=== PATIENT | female | born 1965 | race Caucasian/White ===

== ENCOUNTER 2018-08-15 15:57 | Inpatient (IN) ==
--- NOTE | 2018-08-15 16:22 | ED ---
HPI General Chief complaint: Extremity Injury, Lower Stated complaint: transfer/evac Time Seen by Provider: 08/15/18 16:11 History of Present Illness HPI narrative: This is a 53-year-old female who reports a history of hypertension, hyperlipidemia, GERD, osteopenia, baby aspirin use daily, presents as a transfer from an outside hospital for evaluation of a right knee injury. The patient reports that today she tripped and fell off of a log, landing on her feet. She felt immediate pain in her right knee. X-ray at outside hospital reveals severely comminuted proximal tibia fracture with significant lateral tibial plateau depression and involvement of the medial tibial plateau and proximal tibial metadiaphysis most consistent with a Schatzker type fracture. The patient was transferred here for further evaluation. She reports significant pain in her right knee, constant, worse with movement. She is holding it in a flexed position. She denies any pain in the neck, head, back, chest, abdomen. Symptoms are moderate. She has no other complaints. NPO since 7:30 AM. Related Data Home Medications Medication Instructions Recorded Confirmed alendronate [Fosamax] 70 mg PO QWEEK 08/15/18 08/15/18 amlodipine-benazepril [Lotrel] 1 cap PO DAILY 08/15/18 08/15/18 aspirin [Aspirin Low Dose] 81 mg PO DAILY 08/15/18 08/15/18 simvastatin 10 mg PO QPM 08/15/18 08/15/18 Allergies Allergy/AdvReac Type Severity Reaction Status Date / Time No Known Allergies Allergy Verified 08/15/18 16:12 Review of Systems ROS: all other systems reviewed are negative [facility] Medical History Medical History GERD (gastroesophageal reflux disease) (Acute) H/O: hysterectomy (Acute) Hyperlipidemia (Acute) Hypertension (Acute) Osteopenia (Acute) Surgical History Surgical History H/O shoulder surgery (Acute) Social History Social History Substance History: No History of Abuse Second Hand Smoke Exposure: No Smoking Status: Never smoker How Often Do You Have a Drink Containing Alcohol: Never Recent Travel in [facility] within the Last 8 Weeks: No Recent Out of Country Travel within the Last 8 Weeks: No Immunization History Tetanus Immunization: <5 Years Exam Narrative Exam Narrative: GENERAL: Well-developed well-nourished female no acute distress lying supine with right leg flexed at the knee. SKIN: Warm and dry. HEAD: Atraumatic. Normocephalic. EYES: Pupils equal and round. No scleral icterus. No injection or drainage. ENT: No nasal bleeding or discharge. Mucous membranes pink and moist. NECK: Trachea midline. No JVD. CARDIOVASCULAR: Regular rate and rhythm. No murmur appreciated. RESPIRATORY: No accessory muscle use. Clear to auscultation. Breath sounds equal bilaterally. GASTROINTESTINAL: Abdomen soft, non-tender, nondistended. Hepatic and splenic margins not palpable. MUSCULOSKELETAL: Obvious right knee effusion. There is generalized tenderness to palpation of the right knee. Range of motion examination deferred secondary to pain. 2+ dorsalis pedis pulse. NEUROLOGICAL: Awake and alert. No obvious cranial nerve deficits. Motor grossly within normal limits. Normal speech. Course Initial Documented Vital Signs Temperature 98.7 F 08/15/18 16:04 Pulse Rate 84 08/15/18 16:04 Respiratory Rate 18 08/15/18 16:04 Blood Pressure 133/92 H 08/15/18 16:04 Pulse Oximetry 99 08/15/18 16:04 Last Documented Vital Signs Temperature 98 F 08/20/18 08:00 Pulse Rate 90 08/20/18 08:00 Respiratory Rate 20 08/20/18 08:00 Blood Pressure 106/69 08/20/18 08:00 Pulse Oximetry 92 L 08/20/18 08:00 Medical Decision Making MOIZ Attestation MOIZ supervised visit: Yes Attestation: I, Dr. Miller, have reviewed the advance practice practitioner's documentation and am in agreement, met with the patient face to face, made the diagnosis, and the medical decision making was done by me. *My assessment and Findings: Fracture right tibia Patient was seen at [facility] in [place] with diagnosis fractured right tibia. Patient was transferred to [facility] after ED physician in [place] spoke to trauma surgeon at [place], Dr. Gentile. Patient was transferred to [place] for further evaluation and management of her tibial plateau fracture. I spoke with Dr. Mckay, orthopedist cyber defense incident responder. Conscious sedation procedure will be done for knee immobilization and CT of the knee. MDM Narrative Medical decision making narrative: Transfer was accepted by trauma surgeon Dr. Gentile who recommends orthopedic evaluation and hospitalist admission as it is isolated orthopedic injury. Dr. Miller was able to discuss with the on-call orthopedic surgeon who will see the patient in consultation. The patient was admitted to Dr. Burt, hospitalist. Conscious sedation was performed in order to extend the leg and placed in a knee brace/ice cuff. CT imaging will be obtained. Medical Screen Exam Complete: Yes Emergency Medical Condition: Yes Differential Diagnosis Differential Diagnosis: Tibial plateau fracture, dislocation, ligamentous disruption. Lab Data Result diagrams: 08/20/18 03:56 08/16/18 07:04 Lab Results 08/15/18 08/15/18 08/15/18 Range/Units 16:25 16:25 16:25 WBC 14.0 H (4.0-11.0) th/mm3 RBC 4.03 (4.00-5.30) mil/mm3 Hgb 12.0 (11.6-15.3) gm/dL Hct 35.5 (35.0-46.0) % MCV 88.2 (80.0-100.0) fL MCH 29.7 (27.0-34.0) pg MCHC 33.7 (32.0-36.0) % RDW 13.9 (11.6-17.2) % Plt Count 268 (150-450) th/mm3 MPV 8.7 (7.0-11.0) fL Neut % (Auto) 82.3 H (16.0-70.0) % Lymph % (Auto) 10.3 (9.0-44.0) % [place] % (Auto) 6.8 (0.0-8.0) % Eos % (Auto) 0.0 (0.0-4.0) % Baso % (Auto) 0.6 (0.0-2.0) % Neut # (Auto) 11.5 H (1.8-7.7) th/mm3 Lymph # (Auto) 1.4 (1.0-4.8) th/mm3 [place] # (Auto) 1.0 H (0.0-0.9) th/mm3 Eos # (Auto) 0.0 (0.0-0.4) th/mm3 Baso # (Auto) 0.1 (0.0-0.2) th/mm3 WBC Differential . Differential Comment Auto diff final PT 10.3 (9.8-11.6) sec INR 1.0 Ratio APTT 20.3 L (23.4-31.7) sec Sodium 139 (136-145) meq/L Potassium 4.6 (3.5-5.1) meq/L Chloride 107 (98-107) meq/L Carbon Dioxide 21.6 (21.0-32.0) meq/L Anion Gap 10 (5-15) meq/L BUN 19 H (7-18) mg/dL Creatinine 1.14 H (0.50-1.00) mg/dL Estimated GFR 49 L (>89) mL/min Random Glucose 118 H (74-106) mg/dL Calcium 8.5 (8.5-10.1) mg/dL Calcium Adj for Albumin (8.5-10.1) mg/dL Albumin (3.4-5.0) g/dL Blood Type Blood Type Recheck Antibody Screen 08/15/18 08/16/18 08/16/18 Range/Units 16:25 07:04 07:04 WBC 8.8 (4.0-11.0) th/mm3 RBC 3.38 L (4.00-5.30) mil/mm3 Hgb 10.4 L (11.6-15.3) gm/dL Hct 30.4 L (35.0-46.0) % MCV 90.1 (80.0-100.0) fL MCH 30.8 (27.0-34.0) pg MCHC 34.2 (32.0-36.0) % RDW 13.4 (11.6-17.2) % Plt Count 197 (150-450) th/mm3 MPV 8.4 (7.0-11.0) fL Neut % (Auto) 74.3 H (16.0-70.0) % Lymph % (Auto) 16.8 (9.0-44.0) % [place] % (Auto) 7.8 (0.0-8.0) % Eos % (Auto) 0.5 (0.0-4.0) % Baso % (Auto) 0.6 (0.0-2.0) % Neut # (Auto) 6.5 (1.8-7.7) th/mm3 Lymph # (Auto) 1.5 (1.0-4.8) th/mm3 [place] # (Auto) 0.7 (0.0-0.9) th/mm3 Eos # (Auto) 0.0 (0.0-0.4) th/mm3 Baso # (Auto) 0.1 (0.0-0.2) th/mm3 WBC Differential . Differential Comment Auto diff final PT (9.8-11.6) sec INR Ratio APTT (23.4-31.7) sec Sodium 139 (136-145) meq/L Potassium 4.2 (3.5-5.1) meq/L Chloride 107 (98-107) meq/L Carbon Dioxide 23.4 (21.0-32.0) meq/L Anion Gap 9 (5-15) meq/L BUN 17 (7-18) mg/dL Creatinine 0.88 (0.50-1.00) mg/dL Estimated GFR 67 L (>89) mL/min Random Glucose 113 H (74-106) mg/dL Calcium 7.4 L* D (8.5-10.1) mg/dL Calcium Adj for Albumin 8.1 L (8.5-10.1) mg/dL Albumin 3.1 L (3.4-5.0) g/dL Blood Type A Positive Blood Type Recheck Required Antibody Screen Negative 08/17/18 08/19/18 08/20/18 Range/Units 05:38 06:22 03:56 WBC 9.9 (4.0-11.0) th/mm3 RBC 3.07 L (4.00-5.30) mil/mm3 Hgb 9.4 L 8.7 L 8.7 L (11.6-15.3) gm/dL Hct 27.1 L 25.7 L 25.2 L (35.0-46.0) % MCV 88.1 (80.0-100.0) fL MCH 30.6 (27.0-34.0) pg MCHC 34.8 (32.0-36.0) % RDW 13.2 (11.6-17.2) % Plt Count 193 (150-450) th/mm3 MPV 8.1 (7.0-11.0) fL Neut % (Auto) (16.0-70.0) % Lymph % (Auto) (9.0-44.0) % [place] % (Auto) (0.0-8.0) % Eos % (Auto) (0.0-4.0) % Baso % (Auto) (0.0-2.0) % Neut # (Auto) (1.8-7.7) th/mm3 Lymph # (Auto) (1.0-4.8) th/mm3 [place] # (Auto) (0.0-0.9) th/mm3 Eos # (Auto) (0.0-0.4) th/mm3 Baso # (Auto) (0.0-0.2) th/mm3 WBC Differential Differential Comment PT (9.8-11.6) sec INR Ratio APTT (23.4-31.7) sec Sodium (136-145) meq/L Potassium (3.5-5.1) meq/L Chloride (98-107) meq/L Carbon Dioxide (21.0-32.0) meq/L Anion Gap (5-15) meq/L BUN (7-18) mg/dL Creatinine (0.50-1.00) mg/dL Estimated GFR (>89) mL/min Random Glucose (74-106) mg/dL Calcium (8.5-10.1) mg/dL Calcium Adj for Albumin (8.5-10.1) mg/dL Albumin (3.4-5.0) g/dL Blood Type Blood Type Recheck Antibody Screen Imaging Data Radiologist's impression: Knee CT 08/15/18 17:03 CONCLUSION: 1. Markedly comminuted fracture involving the proximal tibia with involvement of both the medial and lateral articulating surfaces. There is a fragment of the medial tibial plateau remaining anteriorly measuring up to 2 cm across but otherwise unremarkable depressed fragments. Laterally there is very little normal-appearing cortical fragments along the original plane of the lateral tibial plateau. 2. The medial tibial spine is grossly intact and I believe the ACL is probably still intact. 3. The bone at the PCL insertion is markedly comminuted fracture Knee X-Ray 08/16/18 00:00 CONCLUSION: External fixation of the exceedingly comminuted fracture of the proximal tibia. Medial tibial plateau appears now in near-anatomic alignment. Some mild residual depression of the lateral tibial plateau. Discharge Plan Discharge Disposition Patient Disposition: ED Admit(ED Internal Use Only) Discharge Condition Condition: Stable Discharge Order Discharge Orders: ED Use Only Admit Order (Routine); Ordered 08/15/18 Ordered By: Brando Cruz Discharge Details Diagnosis: Closed fracture of right tibial plateau Physicians Team ED Provider: Lon Miller ED Midlevel Provider: Brando Cruz Primary Care Provider: UNKNOWN, Attending Provider: Roseanne House Other Providers: Mohan Mckay ; Aj Boudreaux Status ED Status: Left Department Discharge Information Discharge Date/Time: 08/15/18 18:56
[2018-08-15] MEDS: Morphine Inj 4 MG/ML Vial IV.PUSH ONE ×2 (16:44→16:48)
[2018-08-15] MEDS ORDERED: HYDROmorphone PF Inj 2 MG/ML Vial IV.PUSH ONE (16:46)
[2018-08-15 16:48] LABS: Baso # (Auto) 0.1 th/mm3 (0.0-0.2); Baso % (Auto) 0.6 % (0.0-2.0); Hematocrit 35.5 % (35.0-46.0); Lymph # (Auto) 1.4 th/mm3 (1.0-4.8); Lymph % (Auto) 10.3 % (9.0-44.0); Mean Corpuscular HGB Conc 33.7 % (32.0-36.0); Mean Corpuscular Hemoglobin 29.7 pg (27.0-34.0); Mean Corpuscular Volume 88.2 fL (80.0-100.0); Mean Platelet Volume 8.7 fL (7.0-11.0); Mono % (Auto) 6.8 % (0.0-8.0); Neut # (Auto) 11.5 th/mm3 (1.8-7.7); Neut % (Auto) 82.3 % (16.0-70.0); Platelet Count 268 th/mm3 (150-450); Red Blood Count 4.03 mil/mm3 (4.00-5.30); Red Cell Distribution Width 13.9 % (11.6-17.2)
[2018-08-15] MEDS ORDERED: Midazolam Inj 5 MG/ML 1 ML Vial IV.PUSH ONE (16:48)
[2018-08-15] MEDS: Sod Chloride 0.9% Inj 1,000 ML IV.CONT SCH ×2 (16:51→18:06)
[2018-08-15 16:55] LABS: Activated Partial Thrombo Time 20.3 sec (23.4-31.7); Prothrombin Time 10.3 sec (9.8-11.6)
[2018-08-15 17:09] LABS: Calcium 8.5 mg/dL (8.5-10.1); Carbon Dioxide 21.6 meq/L (21.0-32.0); Potassium 4.6 meq/L (3.5-5.1)
[2018-08-15] MEDS ORDERED: Acetaminophen 325 MG Tablet PO PRN (17:18)
[2018-08-15] MEDS ORDERED: Bisacodyl 10 MG Supp RECTAL PRN (17:18)
--- NOTE | 2018-08-15 17:22 | P.HPIM ---
History of Present Illness Service: This is a 53-year-old female with history of hypertension, hyperlipidemia, GERD, osteopenia, baby aspirin use daily, presents as a transfer from an outside hospital for evaluation of a right knee injury. The patient tripped today and fell off of a log, landing on her feet. She felt immediate pain in her right knee. X-ray at outside hospital reveals severely comminuted proximal tibia fracture with significant lateral tibial plateau depression and involvement of the medial tibial plateau and proximal tibial metadiaphysis most consistent with a Schatzker type fracture. The patient was transferred here for further evaluation. She reports significant pain in her right knee, constant, worse with movement. She is holding it in a flexed position. She denies any pain in the neck, head, back, chest, abdomen. Symptoms are moderate. She has no other complaints. NPO since 7:30 AM. Patient is in severe pain. Patient received IV pain meds morphine, dilaudid, still with severe pain. Dr Woody rodrigez recommends CT scan of the knee and splint done in the ED. Patient received versed prior to CT knee in the ED. The patient was seen in the ED just prior to CT scan and she is in pain, falling asleep easily due to pain meds however able to follow some commands and responding to some questions. Julien placed in the ED with clear urine. Primary Care Physician: UNKNOWN Review of Systems Review of Systems: all other systems reviewed are negative [facility] Medical History Medical History GERD (gastroesophageal reflux disease) (Acute) H/O: hysterectomy (Acute) Hyperlipidemia (Acute) Hypertension (Acute) Osteopenia (Acute) Surgical History Surgical History H/O shoulder surgery (Acute) Social History Social History Substance History: No History of Abuse Second Hand Smoke Exposure: No Smoking Status: Never smoker How Often Do You Have a Drink Containing Alcohol: 4 or more times a week Recent Travel in [facility] within the Last 8 Weeks: No Recent Out of Country Travel within the Last 8 Weeks: No Immunization History Tetanus Immunization: <5 Years Medications and Allergies Allergies Allergy/AdvReac Type Severity Reaction Status Date / Time No Known Allergies Allergy Verified 08/15/18 16:12 Home Medications Medication Instructions Recorded Confirmed Type alendronate [Fosamax] 70 mg PO QWEEK 08/15/18 08/15/18 History amlodipine-benazepril [Lotrel] 1 cap PO DAILY 08/15/18 08/15/18 History aspirin [Aspirin Low Dose] 81 mg PO DAILY 08/15/18 08/15/18 History simvastatin 10 mg PO QPM 08/15/18 08/15/18 History Active Medications: Active Medications Acetaminophen (Tylenol) 650 mg PO Q4H PRN PRN Reason: Temp > 100.4 Al Hydroxide/Mg Hydroxide (Milk Of Magnesia Liq) 30 ml PO Q12H PRN PRN Reason: Mild Constipation Bisacodyl (Dulcolax Supp) 10 mg RECTAL DAILY PRN PRN Reason: SEVERE CONSITIPATION Sodium Chloride (Ns Inj) 1,000 mls @ 125 mls/hr IV.CONT .Q8H [facility] Last Admin: 08/15/18 16:51 Dose: 125 mls/hr Sodium Chloride (Ns Inj) 1,000 mls @ 100 mls/hr IV.CONT .Q10H MARANDA Lactulose (Lactulose Liq) 30 ml PO DAILY PRN PRN Reason: SEVERE CONSITIPATION Ondansetron HCl (Zofran Inj) 4 mg IV.PUSH Q6H PRN PRN Reason: NAUSEA OR VOMITING Senna/Docusate Sodium (Latoya-Colace) 1 tab PO BID MARANDA Sennosides (Senokot) 17.2 mg PO Q12H PRN PRN Reason: Moderate Constipation Sodium Chloride (Ns Flush) 2 ml IV.FLUSH BID MARANDA Sodium Chloride (Ns Flush) 2 ml IV.FLUSH PRN PRN PRN Reason: FLUSH AFTER USING IV ACCESS Physical Exam Vital signs: Vital Signs 08/15/18 16:04 Temperature 98.7 F Pulse Rate 84 Respiratory Rate 18 Blood Pressure 133/92 H Pulse Oximetry 99 Intake & Output 08/14/18 08/15/18 08/15/18 18:59 06:59 18:59 Weight 108.862 kg Narrative: GENERAL: 53 yo female, appears in pain , sleepy but arrousable due to pain meds and sedation. SKIN: Warm and dry. HEAD: Atraumatic. Normocephalic. EYES: Pupils equal and round. No scleral icterus. No injection or drainage. ENT: No nasal bleeding or discharge. Mucous membranes pink and moist. NECK: Trachea midline. No JVD. CARDIOVASCULAR: Regular rate and rhythm. RESPIRATORY: No accessory muscle use. Clear to auscultation. Breath sounds equal bilaterally. GASTROINTESTINAL: Abdomen soft, non-tender, nondistended. Hepatic and splenic margins not palpable. MUSCULOSKELETAL: Extremities without clubbing, cyanosis, or edema. Right knee immobilized in the ED. Neurovascular intact. GENITOURINARY: Julien in place, clear urine. NEUROLOGICAL: Awake and alert, falling asleep easily. No obvious cranial nerve deficits. Moving all extremities except right leg due tp pain. Normal speech. Results Labs CBC & Chem 7: 08/15/18 16:25 08/15/18 16:25 Caprini VTE Risk Assessment Caprin VTE Risk Assessment: Moderate/High Risk (score >= 2) Caprini Risk Assessment Model: Point Value = 1 Point Value = 2 Point Value = 3 Point Value = 5 Age 41-60 Minor surgery BMI > 25 kg/m2 Swollen legs Varicose veins or History of unexplained or recurrent spontaneous Oral contraceptives or hormone replacement Sepsis (< 1 month) Serious lung disease, including pneumonia (< 1 month) Abnormal pulmonary function Acute myocardial infarction Congestive heart failure (< 1 month) History of inflammatory bowel disease Medical patient at bed rest Age 61-74 Arthroscopic surgery Major open surgery (> 45 min) Laparoscopic surgery (> 45 min) Malignancy Confined to bed (> 72 hours) Immobilizing plaster cast Central venous access Age >= 75 History of VTE Family history of VTE Factor V Leiden Prothrombin [id number] Lupus anticoagulant Anticardiolipin antibodies Elevated serum homocysteine Heparin-induced thrombocytopenia Other congenital or acquired thrombophilia Stroke (< 1 month) Elective arthroplasty Hip, pelvis, or leg fracture Acute spinal cord injury (< 1 month) Prophylaxis Regimen: Total Risk Factor Score Risk Level Prophylaxis Regimen 0-1 Low Early ambulation 2 Moderate Order ONE of the following: *Sequential Compression Device (SCD) *Heparin 5000 units SQ BID 3-4 Higher Order ONE of the following medications: *Heparin 5000 units SQ TID *Enoxaparin/Lovenox 40 mg SQ daily (WT < 150 kg, CrCl > 30 mL/min) *Enoxaparin/Lovenox 30 mg SQ daily (WT < 150 kg, CrCl > 10-29 mL/min) *Enoxaparin/Lovenox 30 mg SQ BID (WT < 150 kg, CrCl > 30 mL/min) AND/OR *Sequential Compression Device (SCD) 5 or more Highest Order ONE of the following medications: *Heparin 5000 units SQ TID (Preferred with Epidurals) *Enoxaparin/Lovenox 40 mg SQ daily (WT < 150 kg, CrCl > 30 mL/min) *Enoxaparin/Lovenox 30 mg SQ daily (WT < 150 kg, CrCl > 10-29 mL/min) *Enoxaparin/Lovenox 30 mg SQ BID (WT < 150 kg, CrCl > 30 mL/min) AND *Sequential Compression Device (SCD) Assessment and Plan Plan 53-year-old female status post mechanical fall Status post mechanical fall Close fracture of right tibial plateau Intractable right knee pain History of hypertension History of hyperlipidemia History of osteoporosis On chronic use aspirin Orthopedic surgery consulted Dr. Mckay X-ray outside the hospital shows right tibial fracture Plan for CT right knee Pain medications per pain scale The patient was splinted in the emergency room Healthy heart diet N.p.o. after midnight Antiemetics as needed Bowel regimen as needed Hold aspirin Restart home medications as indicated DVT prophylaxis per surgeon Discussed Condition With: Patient, nurse, ED physician Dr. Miller
--- NOTE | 2018-08-15 18:01 | CT ---
EXAM DATE: 08/15/2018 5:47 PM EST AGE/SEX: 53 years / Female INDICATIONS: Trauma, fall. Right knee pain. CLINICAL DATA: This is the patient's initial encounter. Patient reports that signs and symptoms have been present for 1 day and indicates a pain score of 10/10. MEDICAL/SURGICAL HISTORY: Gastroesophageal reflux disease. Hypertension. Osteopenia. Hysterectomy . RADIATION DOSE: 27.70 CTDI (mGy) COMPARISON: No prior exams available for comparison. TECHNIQUE: Multiple contiguous axial images were acquired using a multirow detector CT scanner witho ut contrast. Multiplanar reconstruction was performed in the sagittal and coronal planes. Using aut omated exposure control and adjustment of the mA and/or kV according to patient size, radiation dose was kept as low as reasonably achievable to obtain optimal diagnostic quality images. DICOM format i mage data is available electronically for review and comparison. FINDINGS: Bones: There is a markedly comminuted fracture involving the proximal tibia. There are innumerable f ragments with extensive disruption of the articulating surface. The distal femur is intact. The fibul a is intact. The patella is unremarkable. Joints: No significant arthropathy or bony hypertrophy is seen. Soft Tissues: Large lipohemarthrosis of the joint with an effusion. Other: No foreign bodies seen. CONCLUSION: 1. Markedly comminuted fracture involving the proximal tibia with involvement of both the medial and lateral articulating surfaces. There is a fragment of the medial tibial plateau remaining anteriorly measuring up to 2 cm across but otherwise unremarkable depressed fragments. Laterally there is very little normal-appearing cortical fragments along the original plane of the lateral tibial plateau. 2. The medial tibial spine is grossly intact and I believe the ACL is probably still intact. 3. The bone at the PCL insertion is markedly comminuted fracture Electronically signed by: Quentin Mariee MD Board Certified Radiologist 08/15/2018 6:00 PM EST
[2018-08-15] MEDS: Senna/Docusate Sodium 8.6/50 MG Tablet PO SCH (20:17)
[2018-08-15] MEDS: HYDROmorphone PF Inj 1 MG/ML Ampul IV.PUSH PRN (20:55)
[2018-08-16] MEDS: HYDROmorphone PF Inj 1 MG/ML Ampul IV.PUSH PRN ×5 (00:31→20:10)
[2018-08-16] MEDS ORDERED: Chlorhexidine Gluconate 2% 1 Pack (2 Cloths) TOPICAL ONE (02:20)
[2018-08-16] MEDS ORDERED: Metoprolol Tartrate 25 MG Tablet PO ONE (02:20)
[2018-08-16] MEDS: Sod Chloride 0.9% Inj 1,000 ML IV.CONT SCH ×5 (02:50→20:50)
[2018-08-16] MEDS ORDERED: Sodium Chlor 0.9% Inj 500 ML IV.SIG SCH (03:00)
[2018-08-16 08:30] LABS: Baso # (Auto) 0.1 th/mm3 (0.0-0.2); Baso % (Auto) 0.6 % (0.0-2.0); Eos % (Auto) 0.5 % (0.0-4.0); Hematocrit 30.4 % (35.0-46.0); Hemoglobin 10.4 gm/dL (11.6-15.3); Lymph # (Auto) 1.5 th/mm3 (1.0-4.8); Lymph % (Auto) 16.8 % (9.0-44.0); Mean Corpuscular HGB Conc 34.2 % (32.0-36.0); Mean Corpuscular Hemoglobin 30.8 pg (27.0-34.0); Mean Corpuscular Volume 90.1 fL (80.0-100.0); Mean Platelet Volume 8.4 fL (7.0-11.0); Mono # (Auto) 0.7 th/mm3 (0.0-0.9); Mono % (Auto) 7.8 % (0.0-8.0); Neut # (Auto) 6.5 th/mm3 (1.8-7.7); Neut % (Auto) 74.3 % (16.0-70.0); Platelet Count 197 th/mm3 (150-450); Red Blood Count 3.38 mil/mm3 (4.00-5.30); Red Cell Distribution Width 13.4 % (11.6-17.2); White Blood Count 8.8 th/mm3 (4.0-11.0)
[2018-08-16 08:50] LABS: Calcium 7.4 mg/dL (8.5-10.1); Carbon Dioxide 23.4 meq/L (21.0-32.0); Potassium 4.2 meq/L (3.5-5.1)
[2018-08-16 08:57] LABS: Albumin 3.1 g/dL (3.4-5.0); Calcium-Albumin Corrected 8.1 mg/dL (8.5-10.1)
[2018-08-16] MEDS: amLODIPine 10 MG Tablet PO SCH (09:00)
[2018-08-16] MEDS: Senna/Docusate Sodium 8.6/50 MG Tablet PO SCH ×2 (09:00→20:10)
[2018-08-16] MEDS: Lisinopril 20 MG Tablet PO SCH (09:01)
[2018-08-16] MEDS ORDERED: Glycopyrrolate Inj 1 MG/5 ML Syringe IV.PUSH ONE (09:24)
[2018-08-16] MEDS ORDERED: Neostigmine Inj 5 MG/5 ML Syringe IV.PUSH ONE (09:24)
[2018-08-16] MEDS ORDERED: Lidocaine PF 1% Inj 5 ML Syringe OTHER ONE (09:24)
[2018-08-16] MEDS ORDERED: ceFAZolin 2 GM Premix Inj 2 GM/50 ML PIGGYBACK IV.SIG ONE (10:29)
[2018-08-16] MEDS ORDERED: Post-op Orders (for Pharmacy) OTHER STA (10:38)
--- NOTE | 2018-08-16 10:42 | XR ---
EXAM DATE: 08/16/2018 10:36 AM EST AGE/SEX: 53 years / Female INDICATIONS: External fixation. CLINICAL DATA: This is the patient's initial encounter. Patient reports that signs and symptoms have been present for 1 day and indicates a pain score of Nonresponsive. MEDICAL/SURGICAL HISTORY: Non-responsive. Non-responsive. COMPARISON: [facility], CT KNEE RIGHT W/O CONTRAST, 08/15/2018. . FINDINGS: External fixation is partially visible. The extremely comminuted fracture of the proximal tibia is ag ain noted. The medial plateau portion appears now in near-anatomic alignment but there is some persis tent depression of the lateral tibial plateau. CONCLUSION: External fixation of the exceedingly comminuted fracture of the proximal tibia. Medial tibial plateau appears now in near-anatomic alignment. Some mild residual depression of the lateral tibial plateau. Electronically signed by: Andrzej Cochran MD Board Certified Radiologist 08/16/2018 10:40 AM EST
[2018-08-16] MEDS ORDERED: fentaNYL Citrate Inj 100 MCG/2 ML Ampul ONE (10:43)
[2018-08-16] MEDS ORDERED: *morphine SULFATE 4 MG/ML PERIprocedure ONLY ONE ×2 (10:50→10:58)
--- NOTE | 2018-08-16 12:27 | MB ---
cc: Mohan Mckay MD DATE: 08/16/2018 REASON FOR CONSULTATION: Right tibial plateau fracture. HISTORY OF PRESENT ILLNESS: The patient is a 53-year-old female with hypertension, hyperlipidemia, gastric reflux, osteopenia who was transferred from another hospital to [facility] with severe right knee injury. She states that she was standing on a 5-foot log and fell to the ground, landing on her right leg. She developed immediate onset of severe pain and an inability to stand or ambulate as related to the fracture. She presented to [facility] and was diagnosed with a highly comminuted, displaced right tibial plateau fracture. The patient's pain is severe, constant, worsened with any movement. No numbness or tingling. No referred symptoms currently. PAST MEDICAL HISTORY: Positive for gastric reflux, hysterectomy, hyperlipidemia, hypertension, osteopenia. REVIEW OF SYSTEMS: Negative for 10 systems as noted in the HPI. SOCIAL HISTORY: Nonsmoker, occasionally drinks alcohol. ALLERGIES: NO KNOWN DRUG ALLERGIES. MEDICATIONS: Include: 1. Fosamax. 2. Amlodipine. 3. Aspirin. 4. Simvastatin. PHYSICAL EXAM: VITAL SIGNS: Temperature 98.7, pulse 84, respirations 18, blood pressure 133/92. GENERAL: The patient is awake, alert, lying in bed, in no acute distress. HEENT: Normocephalic, atraumatic. Pupils round, extraocular muscles intact. NECK: Supple. LUNGS: Clear. HEART: Regular rate and rhythm. ABDOMEN: Soft, nontender. SKIN: Warm, dry, and intact. NEUROLOGIC: Awake, alert. Mood and affect are appropriate. EXTREMITIES: Her right lower extremity does show tenderness to palpation of the tibia. She has swelling, but her compartments are soft. Reflexes are equal in her toes distally. DIAGNOSTIC DATA: White blood cell count is 14, hemoglobin is 12, hematocrit is 35, platelets are 268, BUN is 19, creatinine 1.14, glucose 118. X-rays and CT scan also reviewed that show a highly comminuted displaced right tibial plateau fracture. IMPRESSION: A 53-year-old female, status post fall from a height with a right displaced tibial plateau fracture. PLAN: I discussed the diagnosis and treatment options. At this point, I recommend surgery. Surgery will consist of reduction of the fracture and application of an external fixation device. Risks of surgery were discussed, which include, but are not limited to, anesthesia, bleeding, infection, damage to nerves and blood vessels, blood clots, embolisms. She understands the surgical plan will be a staged plan for surgery today and also she will likely require additional surgery in the future with open reduction internal fixation. The patient has asked appropriate questions which have been answered. She is in favor of proceeding with surgery. Written consent has been obtained and surgical site has been marked. Mohan Mckay MD [id number] , 09:42 AM , 09:47 AM
--- NOTE | 2018-08-16 13:27 | MP ---
cc: Mohan Mckay MD DATE OF OPERATION: 08/16/2018 PREOPERATIVE DIAGNOSIS: Right tibial plateau fracture. POSTOPERATIVE DIAGNOSIS: Right tibial plateau fracture. PROCEDURE: Closed reduction under anesthesia, right tibial plateau fracture, application of uniplanar external fixation, right tibial plateau fracture. SURGEON: Mohan Mckay MD. MANAGER REIMBURSEMENT: FLORENCIO Salgado. ANESTHESIA: General. ESTIMATED BLOOD LOSS: 60 mL. TOURNIQUET: Zero. COMPLICATIONS: None. IMPLANTS USED: ITS. JUSTIFICATION: This patient is a 53-year-old female who fell approximately 5 feet onto the right leg, sustaining a highly comminuted, displaced, impacted right tibial plateau fracture. She was admitted to [facility] from the emergency room and orthopedic surgery was consulted. The patient was counseled as to risks, benefits, and alternatives of the above-named proposed surgical procedure. She did wish to proceed with surgery. DESCRIPTION OF PROCEDURE IN DETAIL: Written consent was obtained. The patient was identified by name, taken to the operating room, and placed supine. General anesthesia was administered to the patient as well as 2 grams of IV Ancef. The right lower extremity prepped and draped using isopropyl alcohol, Hibiclens solution, and ChloraPrep solution after a timeout was performed. Using assistance of fluoroscopic imaging, two 5 mm half pins were placed within the femoral shaft and also two 5 mm half pins were placed within the tibia shaft. Chris-to-chris and pin-to-chris clamps were then connected using the assistance of fluoroscopic imaging. A large longitudinal traction was applied and a closed reduction was performed of the fracture with the manipulation under anesthesia. Subsequently, the chris-to-chris and pin-to-chris clamps were tightened to allow maintenance of reduction of the fracture. At this point, sterile dressings were applied. The patient tolerated the procedure well with no intraoperative complications noted. She will require a planned staged surgical open reduction internal fixation of her fracture once the swelling and soft tissue allow for open reduction internal fixation. Mohan Mckay MD JWBianka/[email or web address]/kd , 10:17 AM , 10:23 AM
--- NOTE | 2018-08-16 14:00 | ECG ---
Date Performed: 08/16/2018 Time Performed: 08:55:43 PTAGE: 53 years EKG: Sinus rhythm NORMAL ECG NO PREVIOUS TRACING DOCTOR: Quentin Morejon Interpretating Date/Time 08/16/2018 14:00:07
--- NOTE | 2018-08-16 15:57 | P.PNIM ---
Subjective Interval history: Follow-up for right tibial plateau fracture, status post closed reduction with external fixation application 08/16: Patient seen and examined, just got back from surgery. Sleepy but arouses to voice. Complains of pain, has been having leg spasms. No chest pain, no shortness of breath. No nausea, no vomiting. Family at bedside, they have many questions about the next surgery and how long she will be in hospital. Questions answered, directed them to speak to surgical team during morning rounds as well. Physical Exam Vital signs: Vital Signs 08/15/18 16:04 08/15/18 17:34 08/15/18 18:03 Temperature 98.7 F Pulse Rate 84 92 H Respiratory Rate 18 18 Blood Pressure 133/92 H 115/70 Pulse Oximetry 99 94 L 96 08/15/18 19:29 08/15/18 23:12 08/16/18 04:26 Temperature 97.8 F 98.1 F 97.5 F L Pulse Rate 85 77 94 H Respiratory Rate 18 18 20 Blood Pressure 117/65 109/62 117/71 Pulse Oximetry 97 96 94 L 08/16/18 08:00 08/16/18 08:51 08/16/18 10:35 Temperature 98.5 F 98.8 F Pulse Rate 88 93 H Respiratory Rate 18 12 Blood Pressure 123/73 119/69 Pulse Oximetry 98 95 08/16/18 10:45 08/16/18 11:00 08/16/18 11:15 Temperature 98 F Pulse Rate 77 69 64 Respiratory Rate 15 14 13 Blood Pressure 117/69 107/57 L 101/59 L Pulse Oximetry 92 L 95 95 08/16/18 12:00 Temperature 98.1 F Pulse Rate 82 Respiratory Rate 20 Blood Pressure 115/55 L Pulse Oximetry 95 Intake & Output 08/15/18 08/16/18 08/16/18 18:59 06:59 18:59 Intake Total 100 / 100 1360 / 1360 2000 / 1999 Output Total 550 / 550 135 / 135 Balance 100 / 100 810 / 810 1865 / 1865 Weight 108.862 kg 114.8 kg Intake: IV 100 / 100 1000 / 1000 1000 / 1000 NS Inj 1,000 ML @ 100 mls/hr IV 100 / 100 1000 / 1000 1000 / 1000 .CONT .Q10H [facility] Rx#:[id number] Oral 360 / 360 Anesthesia Amount 1000 / 1000 Output: Estimated Blood Loss Urine Amount (Catheter) 550 / 550 125 / 125 Indwelling Urethral Catheter 550 / 550 125 / 125 Other: Date of Last Bowel Movement 08/15/18 08/15/18 # Bowel Movements 0 Narrative: GENERAL: 53 yo female, moderately obese, sleeping but arouses to voice SKIN: Warm and dry. HEAD: Atraumatic. Normocephalic. EYES: Pupils equal and round. No scleral icterus. No injection or drainage. ENT: No nasal bleeding or discharge. Mucous membranes pink and moist. NECK: Trachea midline. No JVD. CARDIOVASCULAR: Regular rate and rhythm. RESPIRATORY: No accessory muscle use. Clear to auscultation. Breath sounds equal bilaterally. GASTROINTESTINAL: Abdomen soft, non-tender, nondistended. Hepatic and splenic margins not palpable. MUSCULOSKELETAL: Right knee with external fixator in place, swelling noted as expected. Moderate drainage, bloody. Right pedal pulse 2+, intact sensation. No other joint abnormality. GENITOURINARY: Julien in place, clear urine. NEUROLOGICAL: Awake and alert, falling asleep easily. No obvious cranial nerve deficits. Moving all extremities except right leg due tp pain. Normal speech. Urinary Catheter Management Indwelling Urethral Catheter: Cath placed during this visit: yes Reason for continuing: Other continuation reason Insertion date: 08/15/18 Insertion time: 17:28 Results Labs CBC & Chem 7: 08/16/18 07:04 08/16/18 07:04 Imaging Imaging: Impressions Knee CT 08/15/18 17:03 CONCLUSION: 1. Markedly comminuted fracture involving the proximal tibia with involvement of both the medial and lateral articulating surfaces. There is a fragment of the medial tibial plateau remaining anteriorly measuring up to 2 cm across but otherwise unremarkable depressed fragments. Laterally there is very little normal-appearing cortical fragments along the original plane of the lateral tibial plateau. 2. The medial tibial spine is grossly intact and I believe the ACL is probably still intact. 3. The bone at the PCL insertion is markedly comminuted fracture Knee X-Ray 08/16/18 00:00 CONCLUSION: External fixation of the exceedingly comminuted fracture of the proximal tibia. Medial tibial plateau appears now in near-anatomic alignment. Some mild residual depression of the lateral tibial plateau. Procedures Procedures: 08/16-close reduction right tibial plateau fracture, application of uniplanar external fixation Assessment and Plan (1) Closed fracture of right tibial plateau: Code(s): S82.141A - Displaced bicondylar fracture of right tibia, initial encounter for closed fracture Status: Acute Plan 53-year-old female with history of hypertension, hyperlipidemia, GERD, osteopenia, baby aspirin use daily, presents as a transfer from an outside hospital for evaluation of a right knee injury. The patient tripped today and fell off of a log, landing on her feet. She felt immediate pain in her right knee. X-ray at outside hospital reveals severely comminuted proximal tibia fracture with significant lateral tibial plateau depression and involvement of the medial tibial plateau and proximal tibial metadiaphysis most consistent with a Schatzker type fracture. The patient was transferred here for further evaluation. Status post mechanical fall Close fracture of right tibial plateau History of osteoporotic S/P closed reduction right tibial plateau fracture, application of uniplanar external fix 08/16 -Appreciate orthopedic input Continue postoperative care Patient will need plan stage surgical open reduction internal fixation of fracture once swelling and soft tissue allow for ORIF -Continue with pain management, complains of increased spasms. Will add Flexeril 5 mg every 8 as needed -Bowel regimen Physical therapy -Lovenox for DVT prophylaxis Hypertension, blood pressure well controlled -Continue with lisinopril 20 mg p.o. daily and Norvasc 10 mg p.o. daily Adjust blood pressure medications as needed Hyperlipidemia Continue with pravastatin 20 mg p.o. daily DVT prophylaxisLovenox CBC in the morning Code Status: Full code Discussed Condition With: RN, pt, CM, pt's family Dr. Yudy Velasco Discharge Planning: SNF/CIR in 4-5 days Progress Note: Quality VTE Deep Vein Thrombosis/Pulmonary Embolism Present on Admission: No _ (1) Closed fracture of right tibial plateau Qualifiers: Encounter type: Fracture healing:
[2018-08-16] MEDS: ceFAZolin 2 GM Premix Inj 2 GM/50 ML PIGGYBACK IV.SIG SCH (16:08)
[2018-08-17] MEDS: HYDROmorphone PF Inj 1 MG/ML Ampul IV.PUSH PRN ×2 (01:50→05:37)
[2018-08-17] MEDS: ceFAZolin 2 GM Premix Inj 2 GM/50 ML PIGGYBACK IV.SIG SCH ×2 (02:33→08:38)
[2018-08-17] MEDS: Zolpidem Tartrate 5 MG Tablet PO PRN (03:23)
[2018-08-17 06:42] LABS: Hematocrit 27.1 % (35.0-46.0); Hemoglobin 9.4 gm/dL (11.6-15.3); Mean Corpuscular HGB Conc 34.8 % (32.0-36.0); Mean Corpuscular Hemoglobin 30.6 pg (27.0-34.0); Mean Corpuscular Volume 88.1 fL (80.0-100.0); Mean Platelet Volume 8.1 fL (7.0-11.0); Platelet Count 193 th/mm3 (150-450); Red Blood Count 3.07 mil/mm3 (4.00-5.30); Red Cell Distribution Width 13.2 % (11.6-17.2); White Blood Count 9.9 th/mm3 (4.0-11.0)
--- NOTE | 2018-08-17 06:54 | P.PNOP ---
Subjective Interval history: Resting comfortably with no new complaints Physical Exam Vital signs: Vital Signs 08/16/18 08:00 08/16/18 08:51 08/16/18 10:35 Temperature 98.5 F 98.8 F Pulse Rate 88 93 H Respiratory Rate 18 12 Blood Pressure 123/73 119/69 Pulse Oximetry 98 95 08/16/18 10:45 08/16/18 11:00 08/16/18 11:15 Temperature 98 F Pulse Rate 77 69 64 Respiratory Rate 15 14 13 Blood Pressure 117/69 107/57 L 101/59 L Pulse Oximetry 92 L 95 95 08/16/18 12:00 08/16/18 16:00 08/16/18 20:23 Temperature 98.1 F 97.6 F 98.3 F Pulse Rate 82 86 82 Respiratory Rate 20 20 18 Blood Pressure 115/55 L 115/59 L 118/67 Pulse Oximetry 95 91 L 94 L 08/17/18 00:10 08/17/18 03:28 Temperature 98.9 F 99 F Pulse Rate 96 H 89 Respiratory Rate 17 16 Blood Pressure 120/67 114/66 Pulse Oximetry 93 L 95 Intake & Output 08/16/18 08/16/18 08/17/18 06:59 18:59 06:59 Intake Total 1360 / 1360 2900 / 2900 1397 / 1397 Output Total 550 / 550 1635 / 1635 1050 / 1050 Balance 810 / 810 1265 / 1265 347 / 347 Weight 114.8 kg 116.5 kg Intake: IV 1000 / 1000 1900 / 1900 267 / 267 LR 1000 mL Inj 1,000 ML @ 100 217 / 217 mls/hr IV.CONT .Q10H [facility] Rx#: [id number] NS Inj 1,000 ML @ 100 mls/hr IV 1000 / 1000 1800 / 1800 0 / 0 .CONT .Q10H [facility] Rx#:[id number] Ancef 2 GM Premix Inj 2 gm In 100 / 100 50 / 50 50 ml @ 100 mls/hr IV.SIG Q8H [facility] Rx#:[id number] Oral 360 / 360 1130 / 1130 Anesthesia Amount 1000 / 1000 Output: Estimated Blood Loss 10 Urine Amount (Catheter) 550 / 550 1625 / 1625 1050 / 1050 Indwelling Urethral Catheter 550 / 550 1625 / 1625 1050 / 1050 Other: Date of Last Bowel Movement 08/15/18 08/15/18 08/15/18 # Bowel Movements 0 0 Narrative: Bilateral lower extremities: Full range of motion neurovascular intact Left lower extremity: Full range of motion and neurovascularly intact Right lower extremity: External fixation in place with moderate drainage. Swelling is +3. Compartments are semi-soft. Distally intact sensation with active movement of ankle and toes. Good capillary refills and distal pulses - Urinary Catheter Management Indwelling Urethral Catheter Cath placed during this visit: yes Reason for continuing: Other continuation reason Insertion date: 08/15/18 Insertion time: 17:28 Results - Labs CBC & Chem 7: 08/17/18 05:38 08/16/18 07:04 Laboratory Results - last 24 hr 08/16/18 08/16/18 08/17/18 07:04 07:04 05:38 WBC 8.8 9.9 RBC 3.38 L 3.07 L Hgb 10.4 L 9.4 L Hct 30.4 L 27.1 L MCV 90.1 88.1 MCH 30.8 30.6 MCHC 34.2 34.8 RDW 13.4 13.2 Plt Count 197 193 MPV 8.4 8.1 Neut % (Auto) 74.3 H Lymph % (Auto) 16.8 Isabela % (Auto) 7.8 Eos % (Auto) 0.5 Baso % (Auto) 0.6 Neut # (Auto) 6.5 Lymph # (Auto) 1.5 Isabela # (Auto) 0.7 Eos # (Auto) 0.0 Baso # (Auto) 0.1 WBC Differential . Differential Comment Auto diff final Sodium 139 Potassium 4.2 Chloride 107 Carbon Dioxide 23.4 Anion Gap 9 BUN 17 Creatinine 0.88 Estimated GFR 67 L Random Glucose 113 H Calcium 7.4 L* D Calcium Adj for Albumin 8.1 L Albumin 3.1 L - Imaging Impressions Knee X-Ray 08/16/18 00:00 CONCLUSION: External fixation of the exceedingly comminuted fracture of the proximal tibia. Medial tibial plateau appears now in near-anatomic alignment. Some mild residual depression of the lateral tibial plateau. - Procedures 08/16-close reduction right tibial plateau fracture, application of uniplanar external fixation Assessment and Plan - Assessment and Plan Right tibia plateau fracture status post external fixation POD 1 Significant swelling. Nonweightbearing right lower extremity Ice and elevation Toradol and Lovenox Pin care twice daily Will be ready for surgery the end of this week or the beginning of next week. We will continue to follow swelling. There is a potential that she may be discharged and follow-up in office for planned surgery. She will remain in the hospital for the next day to 2 days to monitor swelling.
[2018-08-17] MEDS: Ketorolac Inj 30 MG/ML (IVP) Vial IV.PUSH SCH ×3 (07:33→21:42)
[2018-08-17] MEDS: amLODIPine 10 MG Tablet PO SCH (08:36)
[2018-08-17] MEDS: Lisinopril 20 MG Tablet PO SCH (08:36)
[2018-08-17] MEDS: Senna/Docusate Sodium 8.6/50 MG Tablet PO SCH ×2 (08:36→21:42)
[2018-08-17] MEDS: Multivitamin/Minerals Therapeutic Tablet PO SCH (08:36)
[2018-08-17] MEDS: Enoxaparin Inj 40 MG/0.4 ML Syringe SQ SCH (08:37)
--- NOTE | 2018-08-17 10:46 | P.PNIM ---
Subjective Interval history: Follow-up for right tibial plateau fracture, status post closed reduction with external fixation application 08/16: Patient seen and examined, had a rough night, increased pain but better this morning. No nausea , no vomiting. Poor appetite. No fever. Sister at bedside. Physical Exam Vital signs: Vital Signs 08/16/18 10:45 08/16/18 11:00 08/16/18 11:15 Temperature 98 F Pulse Rate 77 69 64 Respiratory Rate 15 14 13 Blood Pressure 117/69 107/57 L 101/59 L Pulse Oximetry 92 L 95 95 08/16/18 12:00 08/16/18 16:00 08/16/18 20:23 Temperature 98.1 F 97.6 F 98.3 F Pulse Rate 82 86 82 Respiratory Rate 20 20 18 Blood Pressure 115/55 L 115/59 L 118/67 Pulse Oximetry 95 91 L 94 L 08/17/18 00:10 08/17/18 03:28 08/17/18 08:00 Temperature 98.9 F 99 F 98.8 F Pulse Rate 96 H 89 87 Respiratory Rate 17 16 14 Blood Pressure 120/67 114/66 104/71 Pulse Oximetry 93 L 95 93 L Intake & Output 08/16/18 08/17/18 08/17/18 18:59 06:59 18:59 Intake Total 2900 / 2900 1397 / 1397 Output Total 1635 / 1635 1050 / 1050 Balance 1265 / 1265 347 / 347 Weight 116.5 kg Intake: IV 1900 / 1900 267 / 267 LR 1000 mL Inj 1,000 ML @ 100 217 / 217 mls/hr IV.CONT .Q10H [facility] Rx#: [id number] NS Inj 1,000 ML @ 100 mls/hr IV 1800 / 1800 0 / 0 .CONT .Q10H [facility] Rx#:[id number] Ancef 2 GM Premix Inj 2 gm In 100 / 100 50 / 50 50 ml @ 100 mls/hr IV.SIG Q8H [facility] Rx#:[id number] Oral 1130 / 1130 Anesthesia Amount 1000 / 1000 Output: Estimated Blood Loss 10 / 10 Urine Amount (Catheter) 1625 / 1625 1050 / 1050 Indwelling Urethral Catheter 1625 / 1625 1050 / 1050 Other: Date of Last Bowel Movement 08/15/18 08/15/18 # Bowel Movements 0 Narrative: GENERAL: 53 yo female, moderately obese, sleeping but arouses to voice SKIN: Warm and dry. HEAD: Atraumatic. Normocephalic. EYES: Pupils equal and round. No scleral icterus. No injection or drainage. ENT: No nasal bleeding or discharge. Mucous membranes pink and moist. NECK: Trachea midline. No JVD. CARDIOVASCULAR: Regular rate and rhythm. RESPIRATORY: No accessory muscle use. Clear to auscultation. Breath sounds equal bilaterally. GASTROINTESTINAL: Abdomen soft, non-tender, nondistended. Hepatic and splenic margins not palpable. MUSCULOSKELETAL: Right knee with external fixator in place, swelling noted as expected. Moderate drainage, bloody. Right pedal pulse 2+, intact sensation. No other joint abnormality. GENITOURINARY: Julien in place, clear urine. NEUROLOGICAL: Awake, alert oriented x3. Following commands, speech is clear. No focal deficits. Urinary Catheter Management Indwelling Urethral Catheter: Cath placed during this visit: yes Reason for continuing: Other continuation reason Insertion date: 08/15/18 Insertion time: 17:28 Results Labs CBC & Chem 7: 08/17/18 05:38 08/16/18 07:04 Procedures Procedures: 08/16-close reduction right tibial plateau fracture, application of uniplanar external fixation Assessment and Plan (1) Closed fracture of right tibial plateau: Code(s): S82.141A - Displaced bicondylar fracture of right tibia, initial encounter for closed fracture Status: Acute Plan 53-year-old female with history of hypertension, hyperlipidemia, GERD, osteopenia, baby aspirin use daily, presents as a transfer from an outside hospital for evaluation of a right knee injury. The patient tripped today and fell off of a log, landing on her feet. She felt immediate pain in her right knee. X-ray at outside hospital reveals severely comminuted proximal tibia fracture with significant lateral tibial plateau depression and involvement of the medial tibial plateau and proximal tibial metadiaphysis most consistent with a Schatzker type fracture. The patient was transferred here for further evaluation. Status post mechanical fall Close fracture of right tibial plateau History of osteoporotic S/P closed reduction right tibial plateau fracture, application of uniplanar external fix 08/16 -Appreciate orthopedic input Continue postoperative care -Nonweightbearing status Patient will need plan stage surgical open reduction internal fixation of fracture once swelling and soft tissue allow for ORIF -Continue with pain management, complains of increased spasms. Added Flexeril 5 mg every 8 as needed -Bowel regimen Physical therapy -Lovenox for DVT prophylaxis -Toradol added per orthopedic Possible surgery by end of this week or beginning of next week, this is depending if swelling comes down. Potentially she may be discharged and follow- up in office for planned surgery. For now she will remain in hospital for the next 2 days to monitor swelling. Hypertension, blood pressure well controlled -Continue with lisinopril 20 mg p.o. daily and Norvasc 10 mg p.o. daily Adjust blood pressure medications as needed Hyperlipidemia Continue with pravastatin 20 mg p.o. daily DVT prophylaxisLovenox Labs reviewed, postop H&H stable Continue to monitor Code Status: Full code Discussed Condition With: RN, pt and sister, CM Dr. Velasco Discharge Planning: SNF/CIR in 4-5 days Progress Note: Quality VTE Deep Vein Thrombosis/Pulmonary Embolism Present on Admission: No _ (1) Closed fracture of right tibial plateau Qualifiers: Encounter type: Fracture healing:
[2018-08-18] MEDS: HYDROmorphone PF Inj 1 MG/ML Ampul IV.PUSH PRN ×2 (03:21→09:58)
[2018-08-18] MEDS: Ketorolac Inj 30 MG/ML (IVP) Vial IV.PUSH SCH ×3 (06:14→22:27)
--- NOTE | 2018-08-18 06:25 | P.PNOP ---
Subjective Interval history: Continuing to keep leg elevated with some improvement in swelling. Dressing changes were done this morning with pin care. No new complaints Physical Exam Vital signs: Vital Signs 08/17/18 07:20 08/17/18 08:00 08/17/18 11:34 Temperature 98.0 F 98.8 F 96.9 F L Pulse Rate 94 H 87 94 H Respiratory Rate 18 14 22 Blood Pressure 125/74 104/71 115/69 Pulse Oximetry 90 L 93 L 88 L 08/17/18 11:35 08/17/18 12:00 08/17/18 12:05 Temperature 98.3 F Pulse Rate 66 Respiratory Rate 18 12 18 Blood Pressure 169/92 H Pulse Oximetry 98 08/17/18 13:18 08/17/18 16:00 08/17/18 17:23 Temperature 97.6 F Pulse Rate 90 Respiratory Rate 15 18 Blood Pressure 97/53 L Pulse Oximetry 94 L 96 08/17/18 20:00 08/18/18 00:00 08/18/18 04:00 Temperature 97.6 F 98.3 F 98.2 F Pulse Rate 96 H 92 H 90 Respiratory Rate 18 18 18 Blood Pressure 110/65 107/58 L 95/58 L Pulse Oximetry 93 L 93 L 96 Intake & Output 08/17/18 08/17/18 08/18/18 06:59 18:59 06:59 Intake Total 1397 / 1397 50 / 50 Output Total 1050 / 1050 Balance 347 / 347 50 / 50 Weight 116.5 kg Intake: IV 267 / 267 50 / 50 LR 1000 mL Inj 1,000 ML @ 100 217 / 217 mls/hr IV.CONT .Q10H [facility] Rx#: [id number] NS Inj 1,000 ML @ 100 mls/hr IV 0 / 0 .CONT .Q10H [facility] Rx#:[id number] Ancef 2 GM Premix Inj 2 gm In 50 / 50 50 / 50 50 ml @ 100 mls/hr IV.SIG Q8H [facility] Rx#:[id number] Oral 1130 / 1130 Output: Urine Amount (Catheter) 1050 / 1050 Indwelling Urethral Catheter 1050 / 1050 Other: Date of Last Bowel Movement 08/15/18 08/15/18 08/15/18 # Bowel Movements 0 Narrative: Right lower extremity: External fixation in place. Pin sites clean and dry. Swelling of +3. Compartments semi-soft. Intact sensation distally with active movement of toes and ankle. Intact distal pulses and good capillary refill - Urinary Catheter Management Indwelling Urethral Catheter Cath placed during this visit: yes Reason for continuing: Hourly intake/output Insertion date: 08/15/18 Insertion time: 17:28 Results - Labs CBC & Chem 7: 08/17/18 05:38 08/16/18 07:04 Laboratory Results - last 24 hr 08/17/18 05:38 WBC 9.9 RBC 3.07 L Hgb 9.4 L Hct 27.1 L MCV 88.1 MCH 30.6 MCHC 34.8 RDW 13.2 Plt Count 193 MPV 8.1 - Procedures 08/16-close reduction right tibial plateau fracture, application of uniplanar external fixation Assessment and Plan - Assessment and Plan Right severely comminuted bicondylar tibia plateau fracture status post external fixation POD 2 Significant swelling. Nonweightbearing right lower extremity Ice and elevation Toradol and Lovenox Pin care twice daily Will be ready for surgery the end of this week or the beginning of next week. We will continue to follow swelling. There is a potential that she may be discharged and follow-up in office for planned surgery. She will remain in the hospital for the next day to 2 days to monitor swelling and formulate plan.
[2018-08-18] MEDS: Enoxaparin Inj 40 MG/0.4 ML Syringe SQ SCH (08:22)
[2018-08-18] MEDS: Lisinopril 20 MG Tablet PO SCH (08:23)
[2018-08-18] MEDS: Multivitamin/Minerals Therapeutic Tablet PO SCH (08:23)
[2018-08-18] MEDS: amLODIPine 10 MG Tablet PO SCH (08:23)
[2018-08-18] MEDS: Senna/Docusate Sodium 8.6/50 MG Tablet PO SCH ×2 (08:23→22:28)
--- NOTE | 2018-08-18 15:37 | P.PNIM ---
Subjective Interval history: Patient is seen lying in bed. Significant other is at bedside. Patient tells me that her pain is better controlled today. She did have some low oxygen saturations and is now wearing nasal cannula. She feels that she was just sleeping deeply from the pain med. Denies any shortness of breath. Denies any chest pain. Does not have any history of breathing problems or use of oxygen in the past. Physical Exam Vital signs: Vital Signs 08/17/18 16:00 08/17/18 17:23 08/17/18 20:00 Temperature 97.6 F 97.6 F Pulse Rate 90 96 H Respiratory Rate 15 18 18 Blood Pressure 97/53 L 110/65 Pulse Oximetry 96 93 L 08/18/18 00:00 08/18/18 04:00 08/18/18 08:00 Temperature 98.3 F 98.2 F 98.2 F Pulse Rate 92 H 90 85 Respiratory Rate 18 18 18 Blood Pressure 107/58 L 95/58 L 102/57 L Pulse Oximetry 93 L 96 95 08/18/18 11:55 Temperature 97.9 F Pulse Rate 79 Respiratory Rate 18 Blood Pressure 96/57 L Pulse Oximetry 96 Intake & Output 08/17/18 08/18/18 08/18/18 18:59 06:59 18:59 Intake Total 50 / 50 150 / 150 Output Total 1500 / 1500 Balance 50 / 50 -1350 / -1350 Weight 117.4 kg Intake: IV 50 / 50 Ancef 2 GM Premix Inj 2 gm In 50 / 50 50 ml @ 100 mls/hr IV.SIG Q8H MARANDA Rx#:[id number] Oral 150 / 150 Output: Urine 1500 / 1500 Other: Date of Last Bowel Movement 08/15/18 08/15/18 08/15/18 # Bowel Movements 0 Narrative: GENERAL: Well-nourished, well-developed adult female in no apparent distress SKIN: Warm and dry. CARDIOVASCULAR: Regular rate and rhythm. RESPIRATORY: No accessory muscle use. Clear to auscultation. Breath sounds equal bilaterally. Currently wearing nasal cannula 2 L GASTROINTESTINAL: Abdomen soft, non-tender, nondistended. MUSCULOSKELETAL: Right knee with external fixator in place, swelling noted as expected. Moderate drainage, bloody. Right pedal pulse 2+, intact sensation. No other joint abnormality. GENITOURINARY: Julien in place, clear urine. NEUROLOGICAL: Awake, alert oriented x3. Following commands, speech is clear. No focal deficits. Urinary Catheter Management Indwelling Urethral Catheter: Cath placed during this visit: yes Reason for continuing: Hourly intake/output Insertion date: 08/15/18 Insertion time: 17:28 Results Labs CBC & Chem 7: 08/17/18 05:38 08/16/18 07:04 Procedures Procedures: 08/16-close reduction right tibial plateau fracture, application of uniplanar external fixation Assessment and Plan (1) Closed fracture of right tibial plateau: Code(s): S82.141A - Displaced bicondylar fracture of right tibia, initial encounter for closed fracture Status: Acute Plan 53-year-old female with history of hypertension, hyperlipidemia, GERD, osteopenia, baby aspirin use daily, presents as a transfer from an outside hospital for evaluation of a right knee injury. The patient tripped today and fell off of a log, landing on her feet. She felt immediate pain in her right knee. X-ray at outside hospital reveals severely comminuted proximal tibia fracture with significant lateral tibial plateau depression and involvement of the medial tibial plateau and proximal tibial metadiaphysis most consistent with a Schatzker type fracture. The patient was transferred here for further evaluation. Status post mechanical fall Close fracture of right tibial plateau History of osteoporotic S/P closed reduction right tibial plateau fracture, application of uniplanar external fix 08/16 -Appreciate orthopedic input -Mild postoperative anemia; continue to monitor. Currently stable. Continue postoperative care -Nonweightbearing status Patient will need plan stage surgical open reduction internal fixation of fracture once swelling and soft tissue allow for ORIF -Continue with pain management, complains of increased spasms. Added Flexeril 5 mg every 8 as needed -Bowel regimen Physical therapy -Lovenox for DVT prophylaxis -Toradol added per orthopedic Possible surgery by end of this week or beginning of next week, this is depending if swelling comes down. Potentially she may be discharged and follow- up in office for planned surgery. For now she will remain in hospital for the next 2 days to monitor swelling. Hypertension, blood pressure well controlled -Continue with lisinopril 20 mg p.o. daily and Norvasc 10 mg p.o. daily Adjust blood pressure medications as needed Hyperlipidemia Continue with pravastatin 20 mg p.o. daily DVT prophylaxisLovenox Discharge Planning: possible SNF/CIR in 4-5 days Progress Note: Quality VTE Deep Vein Thrombosis/Pulmonary Embolism Present on Admission: No _ (1) Closed fracture of right tibial plateau Qualifiers: Encounter type: Fracture healing:
[2018-08-18] MEDS: HYDROmorphone PF Inj 0.5 MG/0.5 ML Syringe IV.PUSH PRN (17:20)
[2018-08-19] MEDS: Zolpidem Tartrate 5 MG Tablet PO PRN (00:29)
[2018-08-19] MEDS: HYDROmorphone PF Inj 0.5 MG/0.5 ML Syringe IV.PUSH PRN (05:18)
--- NOTE | 2018-08-19 06:33 | P.PNOP ---
Subjective Interval history: s/p exfix right tibial plateau no changes. states has been keeping it elevated. reports muscle cramps Physical Exam Vital signs: Vital Signs 08/18/18 08:00 08/18/18 11:55 08/18/18 17:41 Temperature 98.2 F 97.9 F 98.0 F Pulse Rate 85 79 94 H Respiratory Rate 18 18 15 Blood Pressure 102/57 L 96/57 L 103/52 L Pulse Oximetry 95 96 97 08/18/18 20:10 08/18/18 22:47 08/19/18 00:00 Temperature 98.8 F 97.2 F L Pulse Rate 94 H 98 H Respiratory Rate 18 15 18 Blood Pressure 98/56 L 96/55 L Pulse Oximetry 93 L 93 L Intake & Output 08/18/18 08/18/18 08/19/18 06:59 18:59 06:59 Intake Total 150 / 150 100 / 100 Output Total 1500 / 1500 Balance -1350 / -1350 100 / 100 Weight 117.4 kg 118.5 kg Intake: Oral 150 / 150 100 / 100 Output: Urine 1500 / 1500 Other: # Voids 2 Date of Last Bowel Movement 08/15/18 08/15/18 08/18/18 # Bowel Movements 0 2 Narrative: RLE: 3+ swellign of leg. compartments soft. exfix pin sites clean. nvi distally - Urinary Catheter Management Indwelling Urethral Catheter Cath placed during this visit: yes, but has since been removed by the nurse Reason for continuing: Decision to DC catheter Insertion date: 08/15/18 Insertion time: 17:28 Removal date: 08/18/18 Removal time: 19:45 Results - Labs CBC & Chem 7: 08/17/18 05:38 08/16/18 07:04 - Procedures 08/16-close reduction right tibial plateau fracture, application of uniplanar external fixation Assessment and Plan - Assessment and Plan Right severely comminuted bicondylar tibia plateau fracture status post external fixation POD 3 Significant swelling. Nonweightbearing right lower extremity Ice and elevation Toradol and Lovenox Pin care twice daily Will be ready for surgery the end of this week or the beginning of next week. We will continue to follow swelling. There is a potential that she may be discharged and follow-up in office for planned surgery. She will remain in the hospital for the next day to 2 days to monitor swelling and formulate plan. will re-assess on friday for possible surgery will adjust flexeril to Q6H for muscle spasms
[2018-08-19 07:12] LABS: Hematocrit 25.7 % (35.0-46.0); Hemoglobin 8.7 gm/dL (11.6-15.3)
[2018-08-19] MEDS: Multivitamin/Minerals Therapeutic Tablet PO SCH (09:28)
[2018-08-19] MEDS: Lisinopril 20 MG Tablet PO SCH (09:28)
[2018-08-19] MEDS: Senna/Docusate Sodium 8.6/50 MG Tablet PO SCH ×2 (09:29→21:01)
[2018-08-19] MEDS: Enoxaparin Inj 40 MG/0.4 ML Syringe SQ SCH (09:30)
[2018-08-19] MEDS: HYDROmorphone PF Inj 1 MG/ML Ampul IV.PUSH PRN ×2 (09:38→21:00)
--- NOTE | 2018-08-19 15:18 | P.PNIM ---
Subjective Interval history: Patient seen sitting up in chair. Family is at bedside. Still struggling intermittently with pain control. Also having some spasming which is helped by Flexeril however dose does not seem to be enough. Swelling slowly improving. No fever or chills. No nausea vomiting or diarrhea. Physical Exam Vital signs: Vital Signs 08/18/18 17:41 08/18/18 20:10 08/18/18 22:47 Temperature 98.0 F 98.8 F Pulse Rate 94 H 94 H Respiratory Rate 15 18 15 Blood Pressure 103/52 L 98/56 L Pulse Oximetry 97 93 L 08/19/18 00:00 08/19/18 08:00 08/19/18 12:00 Temperature 97.2 F L 98.1 F 98.0 F Pulse Rate 98 H 93 H 94 H Respiratory Rate 18 18 19 Blood Pressure 96/55 L 110/56 L 112/64 Pulse Oximetry 93 L 91 L 96 Intake & Output 08/18/18 08/19/18 08/19/18 18:59 06:59 18:59 Intake Total 100 / 100 Balance 100 / 100 Weight 118.5 kg Intake: Oral 100 / 100 Other: # Voids 2 Date of Last Bowel Movement 08/15/18 08/18/18 # Bowel Movements 2 Narrative: GENERAL: Well-nourished, well-developed adult female in no apparent distress SKIN: Warm and dry. CARDIOVASCULAR: Regular rate and rhythm. RESPIRATORY: No accessory muscle use. Clear to auscultation. Breath sounds equal bilaterally. On room air GASTROINTESTINAL: Abdomen soft, non-tender, nondistended. MUSCULOSKELETAL: Right knee with external fixator in place, swelling noted as expected. Moderate drainage from lower site, bloody. Right pedal pulse 2+, intact sensation. No other joint abnormality. GENITOURINARY: Julien in place, clear urine. NEUROLOGICAL: Awake, alert oriented x3. Following commands, speech is clear. No focal deficits. Urinary Catheter Management Indwelling Urethral Catheter: Cath placed during this visit: yes, but has since been removed by the nurse Reason for continuing: Decision to DC catheter Insertion date: 08/15/18 Insertion time: 17:28 Removal date: 08/18/18 Removal time: 19:45 Results Labs CBC & Chem 7: 08/19/18 06:22 08/16/18 07:04 Procedures Procedures: 08/16-close reduction right tibial plateau fracture, application of uniplanar external fixation Assessment and Plan (1) Closed fracture of right tibial plateau: Code(s): S82.141A - Displaced bicondylar fracture of right tibia, initial encounter for closed fracture Status: Acute Plan 53-year-old female with history of hypertension, hyperlipidemia, GERD, osteopenia, baby aspirin use daily, presents as a transfer from an outside hospital for evaluation of a right knee injury. The patient tripped today and fell off of a log, landing on her feet. She felt immediate pain in her right knee. X-ray at outside hospital reveals severely comminuted proximal tibia fracture with significant lateral tibial plateau depression and involvement of the medial tibial plateau and proximal tibial metadiaphysis most consistent with a Schatzker type fracture. The patient was transferred here for further evaluation. Status post mechanical fall Close fracture of right tibial plateau History of osteoporotic S/P closed reduction right tibial plateau fracture, application of uniplanar external fix 08/16 -Appreciate orthopedic input -Mild postoperative anemia; continue to monitor. 10.4->9.4->8.7 Continue postoperative care -Nonweightbearing status Patient will need plan stage surgical open reduction internal fixation of fracture once swelling and soft tissue allow for ORIF -Continue with pain management, complains of increased spasms. Added Flexeril -Bowel regimen Physical therapy -Lovenox for DVT prophylaxis -Toradol added per orthopedic; now stopped due to maximum dose number being reached Possible surgery by end of this week or beginning of next week, this is depending if swelling comes down. Potentially she may be discharged and follow- up in office for planned surgery. For now she will remain in hospital to monitor swelling. -Stop IV fluid 08/19; adequate p.o. intake. Hypertension, blood pressure well controlled -Continue with lisinopril 20 mg p.o. daily and Norvasc 10 mg p.o. daily Adjust blood pressure medications as needed Hyperlipidemia Continue with pravastatin 20 mg p.o. daily DVT prophylaxisLovenox Discharge Planning: possible SNF/CIR in 4-5 days Progress Note: Quality VTE Deep Vein Thrombosis/Pulmonary Embolism Present on Admission: No _ (1) Closed fracture of right tibial plateau Qualifiers: Encounter type: Fracture healing:
[2018-08-19] MEDS ORDERED: Naloxone Inj 0.4 MG/ML Vial IV.PUSH PRN (15:19)
[2018-08-20] MEDS: HYDROmorphone PF Inj 1 MG/ML Ampul IV.PUSH PRN ×3 (04:03→21:41)
[2018-08-20 04:55] LABS: Hematocrit 25.2 % (35.0-46.0); Hemoglobin 8.7 gm/dL (11.6-15.3)
[2018-08-20] MEDS ORDERED: Dexamethasone Inj 20 MG/5 ML Vial IV.PUSH ONE (06:39)
--- NOTE | 2018-08-20 06:41 | P.PNOP ---
Subjective Interval history: s/p exfix right tibial plateau doign well. no changes Physical Exam Vital signs: Vital Signs 08/19/18 08:00 08/19/18 12:00 08/19/18 16:00 Temperature 98.1 F 98.0 F 97.5 F L Pulse Rate 93 H 94 H 87 Respiratory Rate 18 19 16 Blood Pressure 110/56 L 112/64 105/63 Pulse Oximetry 91 L 96 98 08/19/18 19:28 08/20/18 00:06 08/20/18 04:14 Temperature 97.9 F 97.5 F L 97.3 F L Pulse Rate 94 H 89 90 Respiratory Rate 18 18 18 Blood Pressure 108/60 103/59 L 108/57 L Pulse Oximetry 97 94 L 94 L Intake & Output 08/19/18 08/19/18 08/20/18 06:59 18:59 06:59 Intake Total 100 / 100 480 / 480 Balance 100 / 100 480 / 480 Weight 118.5 kg 117.5 kg Intake: Oral 100 / 100 480 / 480 Other: # Voids 2 Date of Last Bowel Movement 08/18/18 08/18/18 08/18/18 # Bowel Movements 2 Narrative: RLE: 3+ swelling of leg. compartments soft. pin sites clean. - Urinary Catheter Management Indwelling Urethral Catheter Cath placed during this visit: yes, but has since been removed by the nurse Reason for continuing: Decision to DC catheter Insertion date: 08/15/18 Insertion time: 17:28 Removal date: 08/18/18 Removal time: 19:45 Results - Labs CBC & Chem 7: 08/20/18 03:56 08/16/18 07:04 Laboratory Results - last 24 hr 08/19/18 08/20/18 06:22 03:56 Hgb 8.7 L 8.7 L Hct 25.7 L 25.2 L - Procedures 08/16-close reduction right tibial plateau fracture, application of uniplanar external fixation Assessment and Plan - Assessment and Plan 1) Right severely comminuted bicondylar tibia plateau fracture status post external fixation Significant swelling. Nonweightbearing right lower extremity Ice and elevation Toradol x 3 doses hold lovenox after AM dose Decadron 10mg once Pin care twice daily npo after MN will assess for possible surgery tomorrow
[2018-08-20] MEDS: Ketorolac Inj 30 MG/ML (IVP) Vial IV.PUSH SCH ×2 (08:22→17:16)
[2018-08-20] MEDS: Enoxaparin Inj 40 MG/0.4 ML Syringe SQ SCH (09:26)
[2018-08-20] MEDS: Multivitamin/Minerals Therapeutic Tablet PO SCH (09:26)
[2018-08-20] MEDS: Senna/Docusate Sodium 8.6/50 MG Tablet PO SCH ×2 (09:26→21:41)
[2018-08-20] MEDS: Lisinopril 20 MG Tablet PO SCH (09:28)
[2018-08-20] MEDS: amLODIPine 10 MG Tablet PO SCH (09:28)
--- NOTE | 2018-08-20 15:57 | P.PNIM ---
Subjective Interval history: Patient is seen lying in bed. Her sister is also at bedside. Patient tells me that she has been experiencing intermittent sharp pains across the front of her knee. Also tells me that muscle spasms are only slightly relieved with Flexeril. Today has been more painful than yesterday. She has found that Ativan does help with the pain by decreasing her anxiety and agitation. Physical Exam Vital signs: Vital Signs 08/19/18 16:00 08/19/18 19:28 08/20/18 00:06 Temperature 97.5 F L 97.9 F 97.5 F L Pulse Rate 87 94 H 89 Respiratory Rate 16 18 18 Blood Pressure 105/63 108/60 103/59 L Pulse Oximetry 98 97 94 L 08/20/18 04:14 08/20/18 08:00 08/20/18 12:00 Temperature 97.3 F L 98 F 98.2 F Pulse Rate 90 90 95 H Respiratory Rate 18 20 21 Blood Pressure 108/57 L 106/69 117/71 Pulse Oximetry 94 L 92 L 92 L Intake & Output 08/19/18 08/20/18 08/20/18 18:59 06:59 18:59 Intake Total 480 / 480 Output Total 1200 / 1200 Balance 480 / 480 -1200 / -1200 Weight 117.5 kg Intake: Oral 480 / 480 Output: Urine 1200 / 1200 Other: Date of Last Bowel Movement 08/18/18 08/18/18 Narrative: GENERAL: Well-nourished, well-developed adult female in no apparent distress SKIN: Warm and dry. CARDIOVASCULAR: Regular rate and rhythm. RESPIRATORY: No accessory muscle use. Clear to auscultation. Breath sounds equal bilaterally. On room air GASTROINTESTINAL: Abdomen soft, non-tender, nondistended. MUSCULOSKELETAL: Right knee with external fixator in place, swelling mildly improved. Drainage has resolved. Right pedal pulse 2+, intact sensation. No other joint abnormality. GENITOURINARY: Julien in place, clear urine. NEUROLOGICAL: Awake, alert oriented x3. Following commands, speech is clear. No focal deficits. Urinary Catheter Management Indwelling Urethral Catheter: Cath placed during this visit: yes, but has since been removed by the nurse Reason for continuing: Decision to DC catheter Insertion date: 08/15/18 Insertion time: 17:28 Removal date: 08/18/18 Removal time: 19:45 Results Labs CBC & Chem 7: 02/14/19 03:56 08/16/18 07:04 Procedures Procedures: 08/16-close reduction right tibial plateau fracture, application of uniplanar external fixation Assessment and Plan (1) Closed fracture of right tibial plateau: Code(s): S82.141A - Displaced bicondylar fracture of right tibia, initial encounter for closed fracture Status: Acute Plan 53-year-old female with history of hypertension, hyperlipidemia, GERD, osteopenia, baby aspirin use daily, presents as a transfer from an outside hospital for evaluation of a right knee injury. The patient tripped today and fell off of a log, landing on her feet. She felt immediate pain in her right knee. X-ray at outside hospital reveals severely comminuted proximal tibia fracture with significant lateral tibial plateau depression and involvement of the medial tibial plateau and proximal tibial metadiaphysis most consistent with a Schatzker type fracture. The patient was transferred here for further evaluation. Status post mechanical fall Close fracture of right tibial plateau History of osteoporotic S/P closed reduction right tibial plateau fracture, application of uniplanar external fix 08/16 -Appreciate orthopedic input -Mild postoperative anemia; continue to monitor. Stable. Continue postoperative care -Nonweightbearing status Patient will need plan stage surgical open reduction internal fixation of fracture once swelling and soft tissue allow for ORIF -Continue with pain management, complains of increased spasms. Failed to improve with Flexeril; change to Robaxin -Bowel regimen Physical therapy -Lovenox for DVT prophylaxis -Toradol added per orthopedic; now stopped due to maximum dose number being reached Possible surgery by end of this week or beginning of next week, this is depending if swelling comes down. Potentially she may be discharged and follow- up in office for planned surgery. For now she will remain in hospital to monitor swelling. -Stop IV fluid 08/19; adequate p.o. intake. Hypertension, blood pressure well controlled -Continue with lisinopril 20 mg p.o. daily and Norvasc 10 mg p.o. daily Adjust blood pressure medications as needed Hyperlipidemia Continue with pravastatin 20 mg p.o. daily DVT prophylaxisLovenox Discharge Planning: possible SNF/CIR in 4-5 days Progress Note: Quality VTE Deep Vein Thrombosis/Pulmonary Embolism Present on Admission: No _ (1) Closed fracture of right tibial plateau Qualifiers: Encounter type: Fracture healing:
[2018-08-20] MEDS: Methocarbamol 500 MG Tablet PO PRN (16:05)
[2018-08-20] MEDS: LORazepam 1 MG Tablet PO PRN (21:41)
[2018-08-21] MEDS: Ketorolac Inj 30 MG/ML (IVP) Vial IV.PUSH SCH (03:45)
[2018-08-21] MEDS ORDERED: Chlorhexidine Gluconate 2% 1 Pack (2 Cloths) TOPICAL ONE (05:00)
[2018-08-21] MEDS ORDERED: Sodium Chlor 0.9% Inj 500 ML IV.CONT ONE (05:00)
[2018-08-21] MEDS: Methocarbamol 500 MG Tablet PO PRN ×2 (08:27→21:41)
[2018-08-21] MEDS: Multivitamin/Minerals Therapeutic Tablet PO SCH (08:32)
[2018-08-21] MEDS: amLODIPine 10 MG Tablet PO SCH (08:32)
[2018-08-21] MEDS: Senna/Docusate Sodium 8.6/50 MG Tablet PO SCH ×2 (08:32→20:36)
[2018-08-21] MEDS: Lisinopril 20 MG Tablet PO SCH (08:32)
--- NOTE | 2018-08-21 10:40 | P.PNIM ---
Subjective Interval history: Patient is seen lying in bed. Her is at bedside. Patient tells me she had a much better night last night. Leg cramps were better with Robaxin. Pain currently adequately controlled. No fever or chills. No nausea vomiting or diarrhea Physical Exam Vital signs: Vital Signs 08/20/18 12:00 08/20/18 16:00 08/20/18 20:00 Temperature 98.2 F 98 F 97.8 F Pulse Rate 95 H 101 H 102 H Respiratory Rate 21 20 18 Blood Pressure 117/71 123/59 L 117/55 L Pulse Oximetry 92 L 97 95 08/21/18 00:00 08/21/18 04:00 08/21/18 08:00 Temperature 98.2 F 97.7 F 97.3 F L Pulse Rate 97 H 91 H 98 H Respiratory Rate 18 16 20 Blood Pressure 117/68 110/68 122/58 L Pulse Oximetry 95 95 95 Intake & Output 08/20/18 08/21/18 08/21/18 18:59 06:59 18:59 Intake Total 960 / 960 Output Total 1200 / 1200 Balance -1200 / -1200 960 / 960 Weight 117.3 kg Intake: Oral 960 / 960 Output: Urine 1200 / 1200 Other: # Voids 4 4 Date of Last Bowel Movement 08/18/18 08/18/18 08/18/18 Narrative: GENERAL: Well-nourished, well-developed adult female in no apparent distress SKIN: Warm and dry. CARDIOVASCULAR: Regular rate and rhythm. RESPIRATORY: No accessory muscle use. Clear to auscultation. Breath sounds equal bilaterally. On room air GASTROINTESTINAL: Abdomen soft, non-tender, nondistended. MUSCULOSKELETAL: Right knee with external fixator in place, swelling mildly improved. Drainage has resolved. Right pedal pulse 2+, intact sensation. No other joint abnormality. GENITOURINARY: Julien in place, clear urine. NEUROLOGICAL: Awake, alert oriented x3. Following commands, speech is clear. No focal deficits. Urinary Catheter Management Indwelling Urethral Catheter: Cath placed during this visit: yes, but has since been removed by the nurse Reason for continuing: Decision to DC catheter Insertion date: 08/15/18 Insertion time: 17:28 Removal date: 08/18/18 Removal time: 19:45 Results Labs CBC & Chem 7: 08/20/18 03:56 08/16/18 07:04 Procedures Procedures: 08/16-close reduction right tibial plateau fracture, application of uniplanar external fixation Assessment and Plan (1) Closed fracture of right tibial plateau: Code(s): S82.141A - Displaced bicondylar fracture of right tibia, initial encounter for closed fracture Status: Acute Plan 53-year-old female with history of hypertension, hyperlipidemia, GERD, osteopenia, baby aspirin use daily, presents as a transfer from an outside hospital for evaluation of a right knee injury. The patient tripped today and fell off of a log, landing on her feet. She felt immediate pain in her right knee. X-ray at outside hospital reveals severely comminuted proximal tibia fracture with significant lateral tibial plateau depression and involvement of the medial tibial plateau and proximal tibial metadiaphysis most consistent with a Schatzker type fracture. The patient was transferred here for further evaluation. Status post mechanical fall Close fracture of right tibial plateau History of osteoporotic S/P closed reduction right tibial plateau fracture, application of uniplanar external fix 08/16 -Appreciate orthopedic input Patient will need surgical open reduction and internal fixation of fracture once swelling and soft tissue allow for ORIF. Possible surgery by end of this week or beginning of next week, this is depending if swelling comes down. Potentially she may be discharged and follow-up in office for planned surgery. For now she will remain in hospital to monitor swelling. Evaluation being done on a daily basis by orthopedics. -Mild postoperative anemia; continue to monitor. Stable. Continue postoperative care -Nonweightbearing status -Continue with pain management, complains of increased spasms. Failed to improve with Flexeril; change to Robaxin. Consider increasing dose if still not controlled. -Bowel regimen Physical therapy -Lovenox for DVT prophylaxis -Toradol added per orthopedic; now stopped due to maximum dose number being reached -Stop IV fluid 08/19; adequate p.o. intake. Hypertension, blood pressure well controlled -Continue with lisinopril 20 mg p.o. daily and Norvasc 10 mg p.o. daily Adjust blood pressure medications as needed Hyperlipidemia Continue with pravastatin 20 mg p.o. daily DVT prophylaxisLovenox Discharge Planning: TBD Progress Note: Quality VTE Deep Vein Thrombosis/Pulmonary Embolism Present on Admission: No _ (1) Closed fracture of right tibial plateau Qualifiers: Encounter type: Fracture healing:
[2018-08-21] MEDS: HYDROmorphone PF Inj 1 MG/ML Ampul IV.PUSH PRN ×2 (10:58→22:35)
[2018-08-21] MEDS: Ketorolac Inj 30 MG/ML (IVP) Vial IV.PUSH PRN ×2 (15:14→23:14)
[2018-08-21] MEDS: LORazepam 1 MG Tablet PO PRN (23:53)
--- NOTE | 2018-08-22 06:43 | P.PNOP ---
Subjective Interval history: s/p exfix right tibial pateau no changes Physical Exam Vital signs: Vital Signs 08/21/18 08:00 08/21/18 12:00 08/21/18 16:00 Temperature 97.3 F L 98.2 F 98.4 F Pulse Rate 98 H 90 90 Respiratory Rate 20 20 19 Blood Pressure 122/58 L 100/56 L 102/66 Pulse Oximetry 95 99 98 08/21/18 19:58 08/21/18 23:21 08/22/18 00:00 Temperature 98.8 F 98.1 F Pulse Rate 94 H 83 Respiratory Rate 18 18 16 Blood Pressure 105/56 L 108/56 L Pulse Oximetry 98 94 L 08/22/18 04:03 Temperature 98.1 F Pulse Rate 92 H Respiratory Rate 17 Blood Pressure 112/62 Pulse Oximetry 93 L Intake & Output 08/21/18 08/21/18 08/22/18 06:59 18:59 06:59 Intake Total 960 / 960 600 / 600 Balance 960 / 960 600 / 600 Weight 117.3 kg 116.6 kg Intake: Oral 960 / 960 600 / 600 Other: # Voids 4 4 4 Date of Last Bowel Movement 08/18/18 08/18/18 08/21/18 # Bowel Movements 2 Narrative: RLE: 2+ swelling of lower leg. pin sites clean. exfix in place. nvi - Urinary Catheter Management Indwelling Urethral Catheter Cath placed during this visit: yes, but has since been removed by the nurse Reason for continuing: Decision to DC catheter Insertion date: 08/15/18 Insertion time: 17:28 Removal date: 08/18/18 Removal time: 19:45 Results - Labs CBC & Chem 7: 08/20/18 03:56 08/16/18 07:04 - Procedures 08/16-close reduction right tibial plateau fracture, application of uniplanar external fixation Assessment and Plan - Assessment and Plan 1) Right severely comminuted bicondylar tibia plateau fracture status post external fixation Significant swelling. Nonweightbearing right lower extremity Ice and elevation swelling improving will make npo after MN for possible surgery friday
[2018-08-22] MEDS: Ketorolac Inj 30 MG/ML (IVP) Vial IV.PUSH PRN ×3 (08:03→17:42)
[2018-08-22] MEDS: Methocarbamol 500 MG Tablet PO PRN ×3 (08:03→21:43)
[2018-08-22] MEDS: Multivitamin/Minerals Therapeutic Tablet PO SCH (09:43)
[2018-08-22] MEDS: Lisinopril 20 MG Tablet PO SCH (09:43)
[2018-08-22] MEDS: Senna/Docusate Sodium 8.6/50 MG Tablet PO SCH ×2 (09:43→21:40)
[2018-08-22] MEDS: amLODIPine 10 MG Tablet PO SCH (09:44)
[2018-08-22] MEDS: HYDROmorphone PF Inj 1 MG/ML Ampul IV.PUSH PRN ×2 (14:40→21:45)
--- NOTE | 2018-08-22 15:04 | P.PNIM ---
Subjective Interval history: Patient seen lying in bed. She reports that she had a lot of leg pain last night due to having to sit on bedside commode in an awkward position. Pain is now resolved. Nursing reports that patient fell in room when she tried to get out of bed unassisted. Patient denies any injury -did not hit head, no loss of consciousness. Orthopedics was also notified. Physical Exam Vital signs: Vital Signs 08/21/18 16:00 08/21/18 19:58 08/21/18 23:21 Temperature 98.4 F 98.8 F 98.1 F Pulse Rate 90 94 H 83 Respiratory Rate 19 18 18 Blood Pressure 102/66 105/56 L 108/56 L Pulse Oximetry 98 98 94 L 08/22/18 00:00 08/22/18 04:03 08/22/18 08:00 Temperature 98.1 F 98.1 F Pulse Rate 92 H 78 Respiratory Rate 16 17 18 Blood Pressure 112/62 109/58 L Pulse Oximetry 93 L 94 L 08/22/18 12:00 Temperature 97.2 F L Pulse Rate 95 H Respiratory Rate 18 Blood Pressure 111/63 Pulse Oximetry 93 L Intake & Output 08/21/18 08/22/18 08/22/18 18:59 06:59 18:59 Intake Total 600 / 600 Balance 600 / 600 Weight 116.6 kg Intake: Oral 600 / 600 Other: # Voids 4 4 Date of Last Bowel Movement 08/18/18 08/21/18 08/21/18 # Bowel Movements 2 Narrative: GENERAL: Well-nourished, well-developed adult female in no apparent distress SKIN: Warm and dry. CARDIOVASCULAR: Regular rate and rhythm. RESPIRATORY: No accessory muscle use. Clear to auscultation. Breath sounds equal bilaterally. On room air GASTROINTESTINAL: Abdomen soft, non-tender, nondistended. MUSCULOSKELETAL: Right knee with external fixator in place, swelling mildly improved. Drainage has resolved. Right pedal pulse 2+, intact sensation. No other joint abnormality. GENITOURINARY: Julien in place, clear urine. NEUROLOGICAL: Awake, alert oriented x3. Following commands, speech is clear. No focal deficits. Urinary Catheter Management Indwelling Urethral Catheter: Cath placed during this visit: yes, but has since been removed by the nurse Reason for continuing: Decision to DC catheter Insertion date: 08/15/18 Insertion time: 17:28 Removal date: 08/18/18 Removal time: 19:45 Results Labs CBC & Chem 7: 08/20/18 03:56 08/16/18 07:04 Procedures Procedures: 08/16-close reduction right tibial plateau fracture, application of uniplanar external fixation Assessment and Plan (1) Closed fracture of right tibial plateau: Code(s): S82.141A - Displaced bicondylar fracture of right tibia, initial encounter for closed fracture Status: Acute Plan 53-year-old female with history of hypertension, hyperlipidemia, GERD, osteopenia, baby aspirin use daily, presents as a transfer from an outside hospital for evaluation of a right knee injury. The patient tripped today and fell off of a log, landing on her feet. She felt immediate pain in her right knee. X-ray at outside hospital reveals severely comminuted proximal tibia fracture with significant lateral tibial plateau depression and involvement of the medial tibial plateau and proximal tibial metadiaphysis most consistent with a Schatzker type fracture. The patient was transferred here for further evaluation. Status post mechanical fall Close fracture of right tibial plateau History of osteoporotic S/P closed reduction right tibial plateau fracture, application of uniplanar external fix 08/16 -Appreciate orthopedic input Patient will need surgical open reduction and internal fixation of fracture once swelling and soft tissue allow for ORIF. Possible surgery by end of this week or beginning of next week, this is depending if swelling comes down. Potentially she may be discharged and follow-up in office for planned surgery. For now she will remain in hospital to monitor swelling. Evaluation being done on a daily basis by orthopedics. -Tentative plan for surgery on Tuesday 08/22; n.p.o. after midnight -Mild postoperative anemia; continue to monitor. Stable. Continue postoperative care -Nonweightbearing status -Continue with pain management, complains of increased spasms. Failed to improve with Flexeril; change to Robaxin. Consider increasing dose if still not controlled. -Bowel regimen Physical therapy -Lovenox for DVT prophylaxis -Toradol added per orthopedic; now stopped due to maximum dose number being reached -Stop IV fluid 08/19; adequate p.o. intake. Hypertension, blood pressure well controlled -Continue with lisinopril 20 mg p.o. daily and Norvasc 10 mg p.o. daily Adjust blood pressure medications as needed Hyperlipidemia Continue with pravastatin 20 mg p.o. daily DVT prophylaxisLovenox Discharge Planning: TBD Progress Note: Quality VTE Deep Vein Thrombosis/Pulmonary Embolism Present on Admission: No _ (1) Closed fracture of right tibial plateau Qualifiers: Encounter type: Fracture healing:
[2018-08-22] MEDS: LORazepam 1 MG Tablet PO PRN (21:45)
[2018-08-23] MEDS: Ketorolac Inj 30 MG/ML (IVP) Vial IV.PUSH PRN (01:43)
[2018-08-23] MEDS: HYDROmorphone PF Inj 1 MG/ML Ampul IV.PUSH PRN ×3 (04:47→19:48)
[2018-08-23] MEDS ORDERED: Chlorhexidine Gluconate 2% 1 Pack (2 Cloths) TOPICAL ONE (06:45)
[2018-08-23] MEDS ORDERED: Sodium Chlor 0.9% Inj 500 ML IV.CONT ONE (06:45)
--- NOTE | 2018-08-23 06:52 | P.PNOP ---
Subjective Interval history: Pain is controlled. She has been n.p.o. Physical Exam Vital signs: Vital Signs 08/22/18 08:00 08/22/18 10:30 08/22/18 11:30 Temperature 98.1 F 98.1 F 97.2 F L Pulse Rate 78 91 H 95 H Respiratory Rate 18 18 18 Blood Pressure 109/58 L 99/57 L 111/63 Pulse Oximetry 94 L 94 L 98 08/22/18 12:00 08/22/18 13:30 08/22/18 16:00 Temperature 97.2 F L 98 F 98.0 F Pulse Rate 95 H 85 79 Respiratory Rate 18 18 18 Blood Pressure 111/63 109/66 Pulse Oximetry 93 L 98 92 L 08/22/18 20:00 08/22/18 21:30 08/23/18 01:30 Temperature 98.6 F 98 F 98.1 F Pulse Rate 84 87 85 Respiratory Rate 18 18 18 Blood Pressure 116/67 110/60 113/68 Pulse Oximetry 96 97 95 08/23/18 04:00 Temperature 98 F Pulse Rate 83 Respiratory Rate 18 Blood Pressure 118/68 Pulse Oximetry 93 L Intake & Output 08/22/18 08/22/18 08/23/18 06:59 18:59 06:59 Intake Total 600 / 600 80 / 80 Balance 600 / 600 80 / 80 Weight 116.6 kg 115.8 kg Intake: Oral 600 / 600 80 / 80 Other: # Voids 4 2 Date of Last Bowel Movement 08/21/18 08/21/18 08/21/18 # Bowel Movements 2 0 Narrative: Right lower extremity: No pain with hip range of motion. External fixator in place. Mild drainage from external fixators. Swelling of +2. Distally intact sensation with active dorsiflexion plantarflexion of foot. - Urinary Catheter Management Indwelling Urethral Catheter Cath placed during this visit: yes, but has since been removed by the nurse Reason for continuing: Decision to DC catheter Insertion date: 08/15/18 Insertion time: 17:28 Removal date: 08/18/18 Removal time: 19:45 Results - Labs CBC & Chem 7: 08/20/18 03:56 08/16/18 07:04 - Procedures 08/16-close reduction right tibial plateau fracture, application of uniplanar external fixation Assessment and Plan - Assessment and Plan 1) Right severely comminuted bicondylar tibia plateau fracture status post external fixation Swelling is improved. And we will plan on surgery today. N.p.o. Signed consents which are on chart Explained to patient that we will perform open reduction internal fixation of the right tibial plateau and will either revision or removal external fixation.
[2018-08-23] MEDS ORDERED: Succinylcholine Inj 100 MG/5 ML Syringe IV.PUSH ONE (08:25)
[2018-08-23] MEDS ORDERED: Neostigmine Inj 5 MG/5 ML Syringe IV.PUSH ONE (08:25)
[2018-08-23] MEDS ORDERED: Labetalol HCl Inj 100 MG/20 ML Vial IV.CONT ONE (08:25)
[2018-08-23] MEDS ORDERED: Glycopyrrolate Inj 1 MG/5 ML Syringe IV.PUSH ONE (08:25)
[2018-08-23] MEDS ORDERED: Lidocaine PF 1% Inj 5 ML Syringe INFILTRATN ONE (08:25)
[2018-08-23] MEDS ORDERED: Tranexamic Acid Inj 1,000 MG/10 ML Ampul ONE (09:27)
[2018-08-23] MEDS ORDERED: SODIUM CHLOR 0.9% IV.SIG ONE (09:47)
[2018-08-23] MEDS ORDERED: CEFAZOLIN IV.SIG ONE (09:47)
[2018-08-23 10:54] LABS: Hematocrit 22.3 % (35.0-46.0); Hemoglobin 7.7 gm/dL (11.6-15.3)
[2018-08-23] MEDS ORDERED: Post-op Orders (for Pharmacy) OTHER STA (11:11)
--- NOTE | 2018-08-23 11:19 | P.OP ---
- Preoperative Diagnosis (1) Closed bicondylar fracture of right tibial plateau Date of procedure: 08/23/18 Procedure: Open reduction to fixation right bicondylar tibial plateau fracture, removal of external fixation Anesthesia: GETA Surgeon: Aj Boudreaux MD Guidance Counselor: LENCHO Rodriguez PA-C The surgical procedure was assisted by my physician assistant professor of business. My P.A. presence was necessary throughout this case for the manipulation and positioning of the surgical extremity. My P.A. was assisting me throughout the duration of this procedure. The skill set of a physician assistant professor of business was medically necessary to complete this procedure. During the surgical case the surgical dressing maker was working at the back table and the physician assistant professor of business was directly assisting me. Operation and Findings: Implants used: ITS medial proximal tibial plate, Biomet lateral proximal tibial plate, 10 cc Ceramet cement Plan of activity: Nonweightbearing, passive range of motion of knee Details of procedure: This patient was seen and evaluated preoperatively. Patient sustained an injury resulting a severely comminuted right bicondylar tibial plateau fracture. Informed consent was obtained preoperatively after detailed discussion of the risks and benefits of surgery. Risk of surgery including bleeding, infection, nonunion, painful hardware, stiffness, loss of motion, arthritis, need for knee replacement, as well as medical complications including blood clots, stroke, heart attack, and were discussed. I also discussed the possibility of using allograft bone graft . Preoperatively the operative site was marked. Patient was brought to the operating room and placed on the operating room table. Intravenous sedation and general endotracheal anesthesia were administered. IV antibiotics were given and a time out procedure was preformed. Procedure began with removal of the external fixator. Clamps were loosened. Bars and clamps were now removed. The pins were left in place. Next,the operative leg was prepped with alcohol followed by Hibiclens and draped in the usual sterile fashion. Attention was now turned towards the medial tibial plateau. A 6 inch incision was made over the posterior medial aspect of the tibial plateau. Saphenous vein was protected. The PES insertion was elevated to expose the posterior medial tibial plateau. Fracture was visualized. Attention was now turned toward reduction. Traction was applied. Fracture was manipulated. The anterior medial fracture keyed in excellent alignment. A fracture tenaculum was used to compress fracture. The posterior medial fragment was reduced next. K wires were used for provisional fixation. A buttress plate was placed along the anterior medial fragment. 3.5 cortical screws were used to compress plate to bone. Additional lag screws were placed through the proximal end of the plate. An ITS posterior medial plate was positioned along the posterior medial aspect of the tibia. Fluoroscopy confirmed excellent alignment of fracture. Plate was provisionally held to bone with K wires. Fluoroscopy confirmed plate placement. 3.5 cortical screws were used to compress plate to bone. Additional locking screws were placed proximally. Next a 5-inch curvilinear incision over the anterolateral knee. Subcutaneous tissue was treated with Bovie. Iliotibial band was split in line with fibers. A sub-meniscal arthrotomy was created and the lateral articular surface was visualized. There was significant comminution and depression of the articular surface. A window was made in the metaphyseal region and bone tamps used to elevate the articular surface. The lateral tibial plateau was depressed and comminuted. Articular surface reduced into excellent alignment. At this point the articular surface of the medial and lateral tibial plateau was elevated using a curved bone tamp. Articular surface reduced into appropriate alignment. K-wires were used for provisional fixation. At this point cancellous bone graft was packed under the articular surface using a bone tamp. There is a large void in the metaphyseal region. The cortical fragments were now reduced. Fluoroscopy revealed excellent alignment of fracture. A lateral proximal tibial plate was selected. The plate was provisionally held with K- wires. 3.5 cortical screws were used compress plate to bone distally, and a periarticular clamp was used to compress the medial and lateral tibial plateau fracture fragments together. Multiple locking screws were now placed proximally. Additional screws were placed in the shaft. K-wires were removed. Final fluoroscopy showed excellent alignment of fracture with well- placed hardware. The incision was thoroughly irrigated. Attention was now returned back to the medial plate. Additional locking screws were placed proximally within the plate. All screws were predrilled and premeasured for appropriate length. Incisions were thoroughly irrigated. At this 10 cc of Ceramet cement was mixed. 1 g of vancomycin was mixed with the cement. The cement was now carefully injected in the metaphyseal region underneath the articular surface. Fluoroscopy confirmed appropriate alignment of fracture with well-placed hardware and appropriate placement of cement. Attention was now turned to closure. Fascia and iliotibial band were closed with #1 Vicryl,. Subcutaneous tissues closed with 3-0 Vicryl and skin was closed with gonzalo. Sterile dressings were applied. The patient was transferred to recovery in stable condition.
[2018-08-23] MEDS ORDERED: Morphine Inj 4 MG/ML Vial ONE (11:47)
[2018-08-23] MEDS ORDERED: fentaNYL Citrate Inj 100 MCG/2 ML Ampul ONE (11:47)
[2018-08-23] MEDS ORDERED: *Meperidine Inj 25 MG/ML Vial PERIprocedural Use ONLY ONE (11:56)
[2018-08-23] MEDS ORDERED: *morphine SULFATE 4 MG/ML PERIprocedure ONLY ONE ×3 (12:01→12:25)
[2018-08-23] MEDS ORDERED: *HYDROmorphone PF Inj 1 MG/ML Ampul PERIprocedural Use ONLY ONE (12:38)
[2018-08-23] MEDS: Ketorolac Inj 30 MG/ML (IVP) Vial IV.PUSH SCH ×2 (12:53→22:25)
--- NOTE | 2018-08-23 13:24 | P.PNIM ---
Subjective Interval history: Patient is seen immediately post surgery. She is still quite drowsy but awakes easily. Some pain. Otherwise no complaints. Physical Exam Vital signs: Vital Signs 08/22/18 13:30 08/22/18 16:00 08/22/18 20:00 Temperature 98 F 98.0 F 98.6 F Pulse Rate 85 79 84 Respiratory Rate 18 18 18 Blood Pressure 109/66 116/67 Pulse Oximetry 98 92 L 96 08/22/18 21:30 08/23/18 01:30 08/23/18 04:00 Temperature 98 F 98.1 F 98 F Pulse Rate 87 85 83 Respiratory Rate 18 18 18 Blood Pressure 110/60 113/68 118/68 Pulse Oximetry 97 95 93 L 08/23/18 05:30 08/23/18 06:35 08/23/18 11:39 Temperature 97.8 F 98.2 F 98.3 F Pulse Rate 87 88 82 Respiratory Rate 18 18 14 Blood Pressure 109/70 114/86 131/82 Pulse Oximetry 94 L 93 L 93 L Intake & Output 08/22/18 08/23/18 08/23/18 18:59 06:59 18:59 Intake Total 80 / 80 2019 Output Total 450 / 450 Balance 80 / 80 1570 / 1570 Weight 115.8 kg Intake: IV 1020 / 1020 LR 1000 mL Inj 1,000 ML @ 30 1000 / 1000 mls/hr IV.CONT .Q24H ONE Rx#: [id number] Ancef Inj 2 GM In NS Inj 20 ML 20 / 20 @ 100 mls/hr IV.SIG ONCE ONE Rx #:[id number] Oral 80 / 80 Anesthesia Amount 1000 / 1000 Output: Estimated Blood Loss 450 / 450 Other: # Voids 3 Date of Last Bowel Movement 08/21/18 08/21/18 # Bowel Movements 0 Narrative: GENERAL: Well-nourished, well-developed adult female in no apparent distress SKIN: Warm and dry. CARDIOVASCULAR: Regular rate and rhythm. RESPIRATORY: No accessory muscle use. Clear to auscultation. Breath sounds equal bilaterally. On room air GASTROINTESTINAL: Abdomen soft, non-tender, nondistended. MUSCULOSKELETAL: Right knee surgical dressing intact. Right pedal pulse 2+, intact sensation. No other joint abnormality. GENITOURINARY: Julien in place, clear urine. NEUROLOGICAL: Drowsy, alert oriented x3. Following commands, speech is clear. No focal deficits. Urinary Catheter Management Indwelling Urethral Catheter: Cath placed during this visit: yes, but has since been removed by the nurse Reason for continuing: Decision to DC catheter Insertion date: 08/15/18 Insertion time: 17:28 Removal date: 08/18/18 Removal time: 19:45 Results Labs CBC & Chem 7: 08/23/18 10:30 08/16/18 07:04 Procedures Procedures: 08/16-close reduction right tibial plateau fracture, application of uniplanar external fixation Assessment and Plan (1) Closed fracture of right tibial plateau: Code(s): S82.141A - Displaced bicondylar fracture of right tibia, initial encounter for closed fracture Status: Acute Plan 53-year-old female with history of hypertension, hyperlipidemia, GERD, osteopenia, baby aspirin use daily, presents as a transfer from an outside hospital for evaluation of a right knee injury. The patient tripped today and fell off of a log, landing on her feet. She felt immediate pain in her right knee. X-ray at outside hospital reveals severely comminuted proximal tibia fracture with significant lateral tibial plateau depression and involvement of the medial tibial plateau and proximal tibial metadiaphysis most consistent with a Schatzker type fracture. The patient was transferred here for further evaluation. Status post mechanical fall Close fracture of right tibial plateau History of osteoporotic S/P closed reduction right tibial plateau fracture, application of uniplanar external fix 08/16 -Appreciate orthopedic input Patient will need surgical open reduction and internal fixation of fracture once swelling and soft tissue allow for ORIF. -Surgical repair today 08/23 -Mild postoperative anemia; continue to monitor. Stable. Continue postoperative care -Nonweightbearing status -Continue with pain management, complains of increased spasms. Failed to improve with Flexeril; change to Robaxin. Consider increasing dose if still not controlled. -Bowel regimen Physical therapy -Lovenox for DVT prophylaxis -Toradol added per orthopedic; now stopped due to maximum dose number being reached -Stop IV fluid 08/19; adequate p.o. intake. Hypertension, blood pressure well controlled -Continue with lisinopril 20 mg p.o. daily and Norvasc 10 mg p.o. daily Adjust blood pressure medications as needed Hyperlipidemia Continue with pravastatin 20 mg p.o. daily DVT prophylaxisLovenox Discharge Planning: TBD Progress Note: Quality VTE Deep Vein Thrombosis/Pulmonary Embolism Present on Admission: No _ (1) Closed fracture of right tibial plateau Qualifiers: Encounter type: Fracture healing:
[2018-08-23] MEDS: Methocarbamol 500 MG Tablet PO PRN (14:08)
[2018-08-23] MEDS: Calcium/Vitamin D 250/125 MG Tablet PO SCH ×3 (14:08→18:17)
[2018-08-23] MEDS: Gabapentin 300 MG Capsule PO SCH ×3 (14:08→18:17)
[2018-08-23] MEDS: Multivitamin/Minerals Therapeutic Tablet PO SCH (15:18)
[2018-08-23] MEDS: Lisinopril 20 MG Tablet PO SCH (15:18)
[2018-08-23] MEDS: amLODIPine 10 MG Tablet PO SCH (15:18)
[2018-08-23] MEDS: Senna/Docusate Sodium 8.6/50 MG Tablet PO SCH ×2 (15:18→20:44)
[2018-08-23] MEDS: ceFAZolin 2 GM Premix Inj 2 GM/50 ML PIGGYBACK IV.SIG SCH ×2 (16:27→23:02)
--- NOTE | 2018-08-23 16:39 | XR ---
EXAM DATE: 08/23/2018 3:52 PM EST AGE/SEX: 53 years / Female INDICATIONS: Surgical repair, proximal right tibia. CLINICAL DATA: This is the patient's initial encounter. Patient reports that signs and symptoms have been present for 1 day and indicates a pain score of Nonresponsive. MEDICAL/SURGICAL HISTORY: Non-responsive. Non-responsive. COMPARISON: [facility] [place] , 08/16/2018. . FINDINGS: There is plate and screw fixation of the proximal tibia with near-anatomic alignment. No complication s identified. CONCLUSION: Fixation proximal tibia. Electronically signed by: Franky Ng MD Board Certified Radiologist 08/23/2018 4:38 PM EST
[2018-08-23] MEDS: Vancomycin Inj 1,000 MG in Sodium Chlor 0.9% Inj 250 ML IV.SIG SCH (20:43)
[2018-08-24] MEDS: HYDROmorphone PF Inj 1 MG/ML Ampul IV.PUSH PRN ×2 (01:57→08:34)
[2018-08-24] MEDS: Methocarbamol 500 MG Tablet PO PRN ×2 (05:43→23:45)
[2018-08-24] MEDS: Ketorolac Inj 30 MG/ML (IVP) Vial IV.PUSH SCH ×2 (05:44→14:11)
[2018-08-24 05:58] LABS: Hematocrit 25.4 % (35.0-46.0); Hemoglobin 8.6 gm/dL (11.6-15.3)
--- NOTE | 2018-08-24 06:45 | P.PNOP ---
Subjective Interval history: POD 1 s/p ORIF with removal of exfix right tibial plateau fracture doing well. pain controlled. resting comfortably Physical Exam Vital signs: Vital Signs 08/23/18 11:39 08/23/18 11:45 08/23/18 12:00 Temperature 98.3 F Pulse Rate 82 73 77 Respiratory Rate 14 16 16 Blood Pressure 131/82 130/82 141/86 H Pulse Oximetry 93 L 93 L 97 08/23/18 12:15 08/23/18 12:30 08/23/18 12:45 Temperature Pulse Rate 82 76 85 Respiratory Rate 16 16 Blood Pressure 132/74 131/81 115/72 Pulse Oximetry 96 96 96 08/23/18 13:00 08/23/18 13:30 08/23/18 16:06 Temperature 98.5 F 98.4 F 97.4 F L Pulse Rate 74 68 92 H Respiratory Rate 16 16 16 Blood Pressure 113/72 126/82 145/86 H Pulse Oximetry 95 91 L 08/23/18 20:10 08/24/18 00:05 08/24/18 04:45 Temperature 98.2 F 97.9 F 98.2 F Pulse Rate 91 H 98 H 89 Respiratory Rate 18 18 18 Blood Pressure 118/67 131/69 115/62 Pulse Oximetry 97 93 L 93 L Intake & Output 08/23/18 08/23/18 08/24/18 06:59 18:59 06:59 Intake Total 80 / 80 2070 / 2070 1540 / 1540 Output Total 450 / 450 Balance 80 / 80 1620 / 1620 1540 / 1540 Weight 115.8 kg 111.2 kg Intake: IV 1070 / 1070 1300 / 1300 LR 1000 mL Inj 1,000 ML @ 80 1000 / 1000 1000 / 1000 mls/hr IV.CONT .[id number] MARANDA Rx# :[id number] Vancomycin Inj 1,000 MG In NS 250 / 250 Inj 250 ML @ 250 mls/hr IV.SIG Q12H MARANDA Rx#:[id number] Ancef 2 GM Premix Inj 2 gm In 50 / 50 50 / 50 50 ml @ 100 mls/hr IV.SIG Q8H MARANDA Rx#:[id number] Ancef Inj 2 GM In NS Inj 20 ML 20 / 20 @ 100 mls/hr IV.SIG ONCE ONE Rx #:[id number] Oral 80 / 80 240 / 240 Anesthesia Amount 1000 / 1000 Output: Estimated Blood Loss 450 / 450 Other: # Voids 3 2 2 Date of Last Bowel Movement 08/21/18 08/21/18 # Bowel Movements 0 0 Narrative: RLE: dressings clean and dry. intact. NVI distally. +CKS - Urinary Catheter Management Indwelling Urethral Catheter Cath placed during this visit: yes, but has since been removed by the nurse Reason for continuing: Decision to DC catheter Insertion date: 08/15/18 Insertion time: 17:28 Removal date: 08/18/18 Removal time: 19:45 Results - Labs CBC & Chem 7: 08/24/18 05:43 08/16/18 07:04 Laboratory Results - last 24 hr 08/23/18 08/23/18 08/24/18 09:11 10:30 05:43 Hgb 7.7 L 8.6 L Hct 22.3 L 25.4 L Blood Type A Positive Antibody Screen Negative MTS Gel Crossmatch See Detail - Imaging Impressions Knee X-Ray 08/23/18 00:00 CONCLUSION: Fixation proximal tibia. - Procedures 08/16-close reduction right tibial plateau fracture, application of uniplanar external fixation Assessment and Plan - Assessment and Plan 1) Right severely comminuted bicondylar tibia plateau fracture status post removal of exfix with ORIF - POD 1 -NWB -no quad sets or leg lifts -PROM 0-90deg -daily dressing changes POD 2 -CKS at all times except for ROM -CM for rehab placement. will liekly require SNF depending on how does with PT -ortho surgeries complete -f/u with [facility] or [facility] in 2 weeks E-FORE Prescription Drug Monitoring Database has been queried and verified prior to prescribing the controlled substance. Acute pain exception. This patient has normal, predicted, physiological, and time limited response to an adverse mechanical stimulus associated with surgery, trauma, or acute illness as described in my notes. There is a lack of alternative treatment options other than to include the prescribed narcotic treatment for this condition.
[2018-08-24] MEDS: Senna/Docusate Sodium 8.6/50 MG Tablet PO SCH ×2 (08:32→20:43)
[2018-08-24] MEDS: Multivitamin/Minerals Therapeutic Tablet PO SCH (08:33)
[2018-08-24] MEDS: amLODIPine 10 MG Tablet PO SCH (08:33)
[2018-08-24] MEDS: Gabapentin 300 MG Capsule PO SCH ×3 (08:33→17:48)
[2018-08-24] MEDS: Lisinopril 20 MG Tablet PO SCH (08:33)
[2018-08-24] MEDS: Calcium/Vitamin D 250/125 MG Tablet PO SCH ×3 (08:33→17:48)
[2018-08-24] MEDS: ceFAZolin 2 GM Premix Inj 2 GM/50 ML PIGGYBACK IV.SIG SCH ×2 (08:42→16:59)
[2018-08-24] MEDS: Vancomycin Inj 1,000 MG in Sodium Chlor 0.9% Inj 250 ML IV.SIG SCH (10:47)
[2018-08-24] MEDS: Enoxaparin Inj 40 MG/0.4 ML Syringe SQ SCH (11:00)
--- NOTE | 2018-08-24 11:09 | P.PNIM ---
Subjective Interval history: Patient is seen lying in bed. and sister are at bedside. Patient tells me she is doing much better and had less pain last night. Muscle spasms are controlled with increased dose of Robaxin. She is inquiring about going to rehab when discharged; she would like to do that rather than home health/PT. no other new complaints or concerns. Physical Exam Vital signs: Vital Signs 08/23/18 11:39 08/23/18 11:45 08/23/18 12:00 Temperature 98.3 F Pulse Rate 82 73 77 Respiratory Rate 14 16 16 Blood Pressure 131/82 130/82 141/86 H Pulse Oximetry 93 L 93 L 97 08/23/18 12:15 08/23/18 12:30 08/23/18 12:45 Temperature Pulse Rate 82 76 85 Respiratory Rate 16 16 Blood Pressure 132/74 131/81 115/72 Pulse Oximetry 96 96 96 08/23/18 13:00 08/23/18 13:30 08/23/18 16:06 Temperature 98.5 F 98.4 F 97.4 F L Pulse Rate 74 68 92 H Respiratory Rate 16 16 16 Blood Pressure 113/72 126/82 145/86 H Pulse Oximetry 95 91 L 08/23/18 20:10 08/24/18 00:05 08/24/18 04:45 Temperature 98.2 F 97.9 F 98.2 F Pulse Rate 91 H 98 H 89 Respiratory Rate 18 18 18 Blood Pressure 118/67 131/69 115/62 Pulse Oximetry 97 93 L 93 L 08/24/18 08:00 Temperature 97.9 F Pulse Rate 94 H Respiratory Rate 18 Blood Pressure 108/63 Pulse Oximetry 96 Intake & Output 08/23/18 08/24/18 08/24/18 18:59 06:59 18:59 Intake Total 2070 / 2070 1540 / 1540 Output Total 450 / 450 Balance 1620 / 1620 1540 / 1540 Weight 111.2 kg Intake: IV 1070 / 1070 1300 / 1300 LR 1000 mL Inj 1,000 ML @ 80 1000 / 1000 1000 / 1000 mls/hr IV.CONT .[id number] [facility]ANDA Rx# :[id number] Vancomycin Inj 1,000 MG In NS 250 / 250 Inj 250 ML @ 250 mls/hr IV.SIG Q12H MARANDA Rx#:[id number] Ancef 2 GM Premix Inj 2 gm In 50 / 50 50 / 50 50 ml @ 100 mls/hr IV.SIG Q8H MARANDA Rx#:[id number] Ancef Inj 2 GM In NS Inj 20 ML 20 / 20 @ 100 mls/hr IV.SIG ONCE ONE Rx #:[id number] Oral 240 / 240 Anesthesia Amount 1000 / 1000 Output: Estimated Blood Loss 450 / 450 Other: # Voids 2 2 Date of Last Bowel Movement 08/21/18 # Bowel Movements 0 Narrative: GENERAL: Well-nourished, well-developed adult female in no apparent distress SKIN: Warm and dry. CARDIOVASCULAR: Regular rate and rhythm. RESPIRATORY: No accessory muscle use. Clear to auscultation. Breath sounds equal bilaterally. On room air GASTROINTESTINAL: Abdomen soft, non-tender, nondistended. MUSCULOSKELETAL: Right knee surgical dressing intact. Right pedal pulse 2+, intact sensation. No other joint abnormality. NEUROLOGICAL: Awake and alert oriented x3. Following commands, speech is clear. No focal deficits. Urinary Catheter Management Indwelling Urethral Catheter: Cath placed during this visit: yes, but has since been removed by the nurse Reason for continuing: Decision to DC catheter Insertion date: 08/15/18 Insertion time: 17:28 Removal date: 08/18/18 Removal time: 19:45 Results Labs CBC & Chem 7: 08/24/18 05:43 08/16/18 07:04 Imaging Imaging: Impressions Knee X-Ray 08/23/18 00:00 CONCLUSION: Fixation proximal tibia. Procedures Procedures: 08/16-close reduction right tibial plateau fracture, application of uniplanar external fixation Assessment and Plan (1) Closed fracture of right tibial plateau: Code(s): S82.141A - Displaced bicondylar fracture of right tibia, initial encounter for closed fracture Status: Acute Plan 53-year-old female with history of hypertension, hyperlipidemia, GERD, osteopenia, baby aspirin use daily, presents as a transfer from an outside hospital for evaluation of a right knee injury. The patient tripped today and fell off of a log, landing on her feet. She felt immediate pain in her right knee. X-ray at outside hospital reveals severely comminuted proximal tibia fracture with significant lateral tibial plateau depression and involvement of the medial tibial plateau and proximal tibial metadiaphysis most consistent with a Schatzker type fracture. The patient was transferred here for further evaluation. Status post mechanical fall Close fracture of right tibial plateau History of osteoporotic -S/P closed reduction right tibial plateau fracture, application of uniplanar external fix 08/16 -s/p ORIF with removal of exfix right tibial plateau fracture on 08/23 -Appreciate orthopedic input -Mild postoperative anemia; continue to monitor. Stable. Continue postoperative care; Nonweightbearing status; Follow Ortho note for dressing change -Continue with pain management, complains of increased spasms. Failed to improve with Flexeril; change to Robaxin. Dose increased; spasms now better controlled. -Bowel regimen Physical therapy -Lovenox for DVT prophylaxis Hypertension, blood pressure well controlled -Continue with lisinopril 20 mg p.o. daily and Norvasc 10 mg p.o. daily Adjust blood pressure medications as needed Hyperlipidemia Continue with pravastatin 20 mg p.o. daily DVT prophylaxisLovenox Discharge Planning: TBD; likely rehab when clear Progress Note: Quality VTE Deep Vein Thrombosis/Pulmonary Embolism Present on Admission: No _ (1) Closed fracture of right tibial plateau Qualifiers: Encounter type: Fracture healing:
[2018-08-24] MEDS: LORazepam 1 MG Tablet PO PRN ×2 (11:32→20:43)
[2018-08-25] MEDS: ceFAZolin 2 GM Premix Inj 2 GM/50 ML PIGGYBACK IV.SIG SCH ×2 (00:53→11:39)
[2018-08-25] MEDS: Zolpidem Tartrate 5 MG Tablet PO PRN (03:32)
[2018-08-25] MEDS: HYDROmorphone PF Inj 0.5 MG/0.5 ML Syringe IV.PUSH PRN ×2 (03:32→11:57)
[2018-08-25] MEDS: LORazepam 1 MG Tablet PO PRN ×2 (06:31→14:54)
[2018-08-25] MEDS: Calcium/Vitamin D 250/125 MG Tablet PO SCH ×3 (10:20→18:48)
[2018-08-25] MEDS: Lisinopril 20 MG Tablet PO SCH (10:20)
[2018-08-25] MEDS: Enoxaparin Inj 40 MG/0.4 ML Syringe SQ SCH (10:20)
[2018-08-25] MEDS: amLODIPine 10 MG Tablet PO SCH (10:20)
[2018-08-25] MEDS: Senna/Docusate Sodium 8.6/50 MG Tablet PO SCH ×2 (10:21→21:42)
[2018-08-25] MEDS: Gabapentin 300 MG Capsule PO SCH ×3 (10:21→18:48)
[2018-08-25] MEDS: Multivitamin/Minerals Therapeutic Tablet PO SCH (10:21)
--- NOTE | 2018-08-25 11:24 | P.PNOP ---
Subjective Interval history: Progressing well with pain controlled. No new complaints Physical Exam Vital signs: Vital Signs 08/24/18 12:00 08/24/18 16:00 08/24/18 20:05 Temperature 97.3 F L 99.5 F 98.7 F Pulse Rate 93 H 97 H 96 H Respiratory Rate 17 17 18 Blood Pressure 124/73 122/74 133/62 Pulse Oximetry 93 L 95 95 08/24/18 23:32 08/24/18 23:40 08/25/18 08:00 Temperature 97.5 F L 98.3 F Pulse Rate 99 H 92 H Respiratory Rate 18 19 18 Blood Pressure 108/69 124/68 Pulse Oximetry 92 L 91 L Intake & Output 08/24/18 08/25/18 08/25/18 18:59 06:59 18:59 Intake Total 350 / 350 50 / 50 Balance 350 / 350 50 / 50 Weight 113.5 kg Intake: IV 350 / 350 50 / 50 Ancef 2 GM Premix Inj 2 gm In 100 / 100 50 / 50 50 ml @ 100 mls/hr IV.SIG Q8H [facility]ANDA Rx#:[id number] Other: # Voids 2 1 Date of Last Bowel Movement 08/21/18 08/21/18 08/22/18 # Bowel Movements 0 - Urinary Catheter Management Indwelling Urethral Catheter Cath placed during this visit: yes, but has since been removed by the nurse Reason for continuing: Decision to DC catheter Insertion date: 08/15/18 Insertion time: 17:28 Removal date: 08/18/18 Removal time: 19:45 Results - Labs CBC & Chem 7: 08/24/18 05:43 08/16/18 07:04 - Procedures 08/16-close reduction right tibial plateau fracture, application of uniplanar external fixation Assessment and Plan - Assessment and Plan 1) Right severely comminuted bicondylar tibia plateau fracture status post removal of exfix with ORIF - POD 2 -NWB -no quad sets or leg lifts -PROM 0-90deg -daily dressing changes -CKS at all times except for ROM -CM for rehab placement. will likely require SNF depending on how does with PT -ortho surgeries complete -f/u with [facility] or [facility] in 2 weeks [facility] Prescription Drug Monitoring Database has been queried and verified prior to prescribing the controlled substance. Acute pain exception. This patient has normal, predicted, physiological, and time limited response to an adverse mechanical stimulus associated with surgery, trauma, or acute illness as described in my notes. There is a lack of alternative treatment options other than to include the prescribed narcotic treatment for this condition.
--- NOTE | 2018-08-25 12:12 | P.PNIM ---
Subjective Interval history: f/u right tibial fx s/p ORIF, htn and hld Pt lying in bed, stated pain is better controlled, worse with movement BM 2 days ago before surgery, discussed stool softeners and laxative, discussed with nurse Denies any abdominal pain, nausea or vomiting Physical Exam Vital signs: Vital Signs 08/24/18 16:00 08/24/18 20:05 08/24/18 23:32 Temperature 99.5 F 98.7 F Pulse Rate 97 H 96 H Respiratory Rate 17 18 18 Blood Pressure 122/74 133/62 Pulse Oximetry 95 95 08/24/18 23:40 08/25/18 08:00 Temperature 97.5 F L 98.3 F Pulse Rate 99 H 92 H Respiratory Rate 19 18 Blood Pressure 108/69 124/68 Pulse Oximetry 92 L 91 L Intake & Output 08/24/18 08/25/18 08/25/18 18:59 06:59 18:59 Intake Total 350 / 350 50 / 50 Balance 350 / 350 50 / 50 Weight 113.5 kg Intake: IV 350 / 350 50 / 50 Ancef 2 GM Premix Inj 2 gm In 100 / 100 50 / 50 50 ml @ 100 mls/hr IV.SIG Q8H [facility]ANDA Rx#:[id number] Other: # Voids 2 1 Date of Last Bowel Movement 08/21/18 08/21/18 08/22/18 # Bowel Movements 0 Narrative: GENERAL: Well-developed, well-nourished, female in no acute distress SKIN: Warm and dry. HEAD: Atraumatic. Normocephalic. NECK: Trachea midline. No JVD. CARDIOVASCULAR: Regular rate and rhythm. RESPIRATORY: No accessory muscle use. Clear to auscultation. Breath sounds equal bilaterally. GASTROINTESTINAL: Abdomen obese, soft, non-tender, nondistended. Hepatic and splenic margins not palpable. MUSCULOSKELETAL: Extremities without clubbing, cyanosis. Right lower extremity edema, with Arnol wrap and CKS. Sensation intact pulses palpable in bilateral lower extremity NEUROLOGICAL: Awake and alert. No obvious cranial nerve deficits. Motor grossly within normal limits. Five out of 5 muscle strength in the arms and legs except right lower extremity with limited range of motion. Normal speech. PSYCHIATRIC: Appropriate mood and affect; insight and judgment normal. Urinary Catheter Management Indwelling Urethral Catheter: Cath placed during this visit: yes, but has since been removed by the nurse Reason for continuing: Decision to DC catheter Insertion date: 08/15/18 Insertion time: 17:28 Removal date: 08/18/18 Removal time: 19:45 Results Labs CBC & Chem 7: 08/24/18 05:43 08/16/18 07:04 Procedures Procedures: 08/16-close reduction right tibial plateau fracture, application of uniplanar external fixation Assessment and Plan (1) Closed fracture of right tibial plateau: Code(s): S82.141A - Displaced bicondylar fracture of right tibia, initial encounter for closed fracture Status: Acute Plan 53-year-old female with history of hypertension, hyperlipidemia, GERD, osteopenia, baby aspirin use daily, presents as a transfer from an outside hospital for evaluation of a right knee injury. The patient tripped today and fell off of a log, landing on her feet. She felt immediate pain in her right knee. X-ray at outside hospital reveals severely comminuted proximal tibia fracture with significant lateral tibial plateau depression and involvement of the medial tibial plateau and proximal tibial metadiaphysis most consistent with a Schatzker type fracture. The patient was transferred here for further evaluation. Status post mechanical fall Close fracture of right tibial plateau History of osteoporotic -S/P closed reduction right tibial plateau fracture, application of uniplanar external fix 08/16 -s/p ORIF with removal of exfix right tibial plateau fracture on 08/23 -Appreciate orthopedic assistance -Mild postoperative anemia; continue to monitor. Stable. Continue postoperative care; Nonweightbearing status; Follow Ortho note for dressing change -Continue with pain management, with Robaxin. Spasms better controlled. -Bowel regimen,stool softener daily, give laxative today and prn Physical therapy -Lovenox for DVT prophylaxis Hypertension -blood pressure well controlled -Continue with lisinopril and Norvasc Monitor blood pressure, medications accordingly Hyperlipidemia Continue with pravastatin 20 mg p.o. daily Anemia -likely post op related -monitor CBC -add iron supplements DVT prophylaxisLovenox Code Status: full code Discussed Condition With: Patientand nurse Discharge Planning: rn women services to assist with discharge planning possibly to SNF Progress Note: Quality VTE Deep Vein Thrombosis/Pulmonary Embolism Present on Admission: No _ (1) Closed fracture of right tibial plateau Qualifiers: Encounter type: Fracture healing:
[2018-08-25] MEDS: Methocarbamol 500 MG Tablet PO PRN (14:28)
[2018-08-25] MEDS: HYDROmorphone PF Inj 1 MG/ML Ampul IV.PUSH PRN ×2 (16:17→21:41)
[2018-08-25] MEDS: Ferrous Sulfate 325 MG Tablet PO SCH (18:42)
[2018-08-26] MEDS: Methocarbamol 500 MG Tablet PO PRN ×3 (00:53→17:03)
[2018-08-26] MEDS: LORazepam 1 MG Tablet PO PRN ×3 (00:53→17:03)
[2018-08-26] MEDS: HYDROmorphone PF Inj 1 MG/ML Ampul IV.PUSH PRN ×4 (04:54→22:19)
[2018-08-26 05:12] LABS: Hemoglobin 8.5 gm/dL (11.6-15.3)
--- NOTE | 2018-08-26 06:49 | P.PNOP ---
Subjective Interval history: Resting comfortably with no new complaints Physical Exam Vital signs: Vital Signs 08/25/18 08:00 08/25/18 12:00 08/25/18 16:00 Temperature 98.3 F 97.5 F L 97.8 F Pulse Rate 92 H 94 H 96 H Respiratory Rate 18 16 18 Blood Pressure 124/68 107/64 110/56 L Pulse Oximetry 91 L 91 L 96 08/25/18 21:39 08/25/18 22:10 08/26/18 00:53 Temperature 98.6 F Pulse Rate 95 H Respiratory Rate 18 19 18 Blood Pressure 107/59 L Pulse Oximetry 93 L 08/26/18 01:45 08/26/18 04:50 Temperature 98.8 F 98.1 F Pulse Rate 97 H 95 H Respiratory Rate 18 18 Blood Pressure 100/58 L 103/57 L Pulse Oximetry 94 L 95 Intake & Output 08/25/18 08/25/18 08/26/18 06:59 18:59 06:59 Intake Total 50 / 50 50 / 50 900 / 900 Balance 50 / 50 50 / 50 900 / 900 Weight 113.5 kg 113.4 kg Intake: IV 50 / 50 50 / 50 Ancef 2 GM Premix Inj 2 gm In 50 / 50 50 / 50 50 ml @ 100 mls/hr IV.SIG Q8H [facility] Rx#:[id number] Oral 900 / 900 Other: # Voids 2 1 3 Date of Last Bowel Movement 08/21/18 08/22/18 08/22/18 # Bowel Movements 0 1 Narrative: Right lower extremity: No pain with hip range of motion. Knee immobilizer in place with clean dry dressings intact. Intact sensation distally with good capillary refills with active dorsiflexion and plantarflexion of the foot. - Urinary Catheter Management Indwelling Urethral Catheter Cath placed during this visit: yes, but has since been removed by the nurse Reason for continuing: Decision to DC catheter Insertion date: 08/15/18 Insertion time: 17:28 Removal date: 08/18/18 Removal time: 19:45 Results - Labs CBC & Chem 7: 08/26/18 04:24 08/16/18 07:04 Laboratory Results - last 24 hr 08/26/18 04:24 Hgb 8.5 L Hct 25.0 L - Procedures 08/16-close reduction right tibial plateau fracture, application of uniplanar external fixation Assessment and Plan - Assessment and Plan 1) Right severely comminuted bicondylar tibia plateau fracture status post removal of exfix with ORIF - POD 3 -NWB -no quad sets or leg lifts -PROM 0-90deg -daily dressing changes -CKS at all times except for ROM -CM for rehab placement. Orthopedically clear for discharge to rehab -Lucrecia on chart -ortho surgeries complete -f/u with [facility] or [facility] in 2 weeks [facility] Prescription Drug Monitoring Database has been queried and verified prior to prescribing the controlled substance. Acute pain exception. This patient has normal, predicted, physiological, and time limited response to an adverse mechanical stimulus associated with surgery, trauma, or acute illness as described in my notes. There is a lack of alternative treatment options other than to include the prescribed narcotic treatment for this condition.
[2018-08-26] MEDS: Lisinopril 20 MG Tablet PO SCH (08:44)
[2018-08-26] MEDS: Multivitamin/Minerals Therapeutic Tablet PO SCH (08:44)
[2018-08-26] MEDS: Enoxaparin Inj 40 MG/0.4 ML Syringe SQ SCH (08:45)
[2018-08-26] MEDS: Senna/Docusate Sodium 8.6/50 MG Tablet PO SCH ×2 (08:45→21:57)
[2018-08-26] MEDS: Gabapentin 300 MG Capsule PO SCH ×3 (08:45→18:49)
[2018-08-26] MEDS: Calcium/Vitamin D 250/125 MG Tablet PO SCH ×3 (08:45→18:49)
[2018-08-26] MEDS: amLODIPine 10 MG Tablet PO SCH (08:45)
--- NOTE | 2018-08-26 13:38 | P.PNIM ---
Subjective Interval history: F/U right tibial fx s/p ORIF, Htn and Hld Pt seen and examined lying in bed, pt stated pain is better controlled and good at this time. When asked to rate the pain stated 6/10 and does not need any pain meds at the moment Pt denies any H/a or dizziness, Cp or SOB. Denies any nausea or vomiting. Stated had good BM last night Nurse reported no acute isues. visitor services representative discussed discharge planning, awaiting for SNF Placement Pt requested to placed in Rehab facility before going home, also requested in the area of [place] where she lives. Physical Exam Vital signs: Vital Signs 08/25/18 16:00 08/25/18 21:39 08/25/18 22:10 Temperature 97.8 F 98.6 F Pulse Rate 96 H 95 H Respiratory Rate 18 18 19 Blood Pressure 110/56 L 107/59 L Pulse Oximetry 96 93 L 08/26/18 00:53 08/26/18 01:45 08/26/18 04:50 Temperature 98.8 F 98.1 F Pulse Rate 97 H 95 H Respiratory Rate 18 18 18 Blood Pressure 100/58 L 103/57 L Pulse Oximetry 94 L 95 08/26/18 07:45 08/26/18 07:48 08/26/18 09:57 Temperature 98.6 F Pulse Rate 93 H 92 H Respiratory Rate 18 16 18 Blood Pressure 116/68 100/57 L Pulse Oximetry 94 L Intake & Output 08/25/18 08/26/18 08/26/18 18:59 06:59 18:59 Intake Total 50 / 50 900 / 900 Balance 50 / 50 900 / 900 Weight 113.4 kg Intake: IV 50 / 50 Ancef 2 GM Premix Inj 2 gm In 50 / 50 50 ml @ 100 mls/hr IV.SIG Q8H [facility]DA Rx#:[id number] Oral 900 / 900 Other: # Voids 1 3 Date of Last Bowel Movement 08/22/18 08/22/18 # Bowel Movements 1 Narrative: GENERAL: Well-developed, well-nourished, female in no acute distress SKIN: Warm and dry. HEAD: Atraumatic. Normocephalic. NECK: Trachea midline. No JVD. CARDIOVASCULAR: Regular rate and rhythm. RESPIRATORY: No accessory muscle use. Clear to auscultation. Breath sounds equal bilaterally. GASTROINTESTINAL: Abdomen obese, soft, non-tender, nondistended. Hepatic and splenic margins not palpable. MUSCULOSKELETAL: Extremities without clubbing, cyanosis. Right lower extremity trace edema, Right knee incisions Sensation intact pulses palpable in bilateral lower extremity. CKS in place NEUROLOGICAL: Awake and alert. No obvious cranial nerve deficits. Generalized weakness, moving all 4 extremities except right lower extremity with limited range of motion. Normal speech. PSYCHIATRIC: Appropriate mood and affect; insight and judgment normal. Urinary Catheter Management Indwelling Urethral Catheter: Cath placed during this visit: yes, but has since been removed by the nurse Reason for continuing: Decision to DC catheter Insertion date: 08/15/18 Insertion time: 17:28 Removal date: 08/18/18 Removal time: 19:45 Results Labs CBC & Chem 7: 08/26/18 04:24 08/16/18 07:04 Procedures Procedures: 08/16-close reduction right tibial plateau fracture, application of uniplanar external fixation Assessment and Plan (1) Closed fracture of right tibial plateau: Code(s): S82.141A - Displaced bicondylar fracture of right tibia, initial encounter for closed fracture Status: Acute Plan 53-year-old female with history of hypertension, hyperlipidemia, GERD, osteopenia, baby aspirin use daily, presents as a transfer from an outside hospital for evaluation of a right knee injury. The patient tripped today and fell off of a log, landing on her feet. She felt immediate pain in her right knee. X-ray at outside hospital reveals severely comminuted proximal tibia fracture with significant lateral tibial plateau depression and involvement of the medial tibial plateau and proximal tibial metadiaphysis most consistent with a Schatzker type fracture. The patient was transferred here for further evaluation. Status post mechanical fall Close fracture of right tibial plateau History of osteoporotic -S/P closed reduction right tibial plateau fracture, application of uniplanar external fix 08/16 -s/p ORIF with removal of exfix right tibial plateau fracture on 08/23 -Appreciate orthopedic assistance -Mild postoperative anemia; continue to monitor. Stable. Continue postoperative care; Nonweightbearing status; Follow Ortho note for dressing change -Continue with pain management, with Robaxin. Spasms better controlled. -Bowel regimen,stool softener daily, give laxative today and prn Physical therapy -Lovenox for DVT prophylaxis Hypertension -blood pressure in the low side -decrease lisinopril dose and continue Norvasc Monitor blood pressure, medications accordingly Hyperlipidemia Continue with pravastatin 20 mg p.o. daily Anemia -likely post op related - Hgb stable, monitor CBC -add iron supplements DVT prophylaxisLovenox Code Status: full code Discussed Condition With: patient, nurse and visitor services representative Dr. Hatfield Discharge Planning: visitor services representative to assist with discharge planning to SNF. Pt lives in [facility] and requested to be placed [facility] the [facility] Pending acceptance to [facility] Progress Note: Quality VTE Deep Vein Thrombosis/Pulmonary Embolism Present on Admission: No _ (1) Closed fracture of right tibial plateau Qualifiers: Encounter type: Fracture healing:
[2018-08-26] MEDS: Ferrous Sulfate 325 MG Tablet PO SCH ×2 (13:40→17:03)
[2018-08-27] MEDS: Methocarbamol 500 MG Tablet PO PRN ×3 (01:21→20:16)
[2018-08-27] MEDS: LORazepam 1 MG Tablet PO PRN ×3 (01:22→20:24)
[2018-08-27] MEDS: HYDROmorphone PF Inj 1 MG/ML Ampul IV.PUSH PRN ×2 (04:27→08:53)
[2018-08-27] MEDS: Lisinopril 20 MG Tablet PO SCH (08:51)
[2018-08-27] MEDS: Calcium/Vitamin D 250/125 MG Tablet PO SCH ×3 (08:54→17:33)
[2018-08-27] MEDS: Senna/Docusate Sodium 8.6/50 MG Tablet PO SCH ×2 (08:54→20:16)
[2018-08-27] MEDS: Multivitamin/Minerals Therapeutic Tablet PO SCH (08:54)
[2018-08-27] MEDS: Enoxaparin Inj 40 MG/0.4 ML Syringe SQ SCH (08:54)
[2018-08-27] MEDS: Gabapentin 300 MG Capsule PO SCH ×3 (08:56→17:33)
[2018-08-27] MEDS: Ferrous Sulfate 325 MG Tablet PO SCH ×2 (12:11→17:33)
[2018-08-27 12:33] LABS: Calcium 8.4 mg/dL (8.5-10.1); Carbon Dioxide 25.6 meq/L (21.0-32.0); Potassium 4.5 meq/L (3.5-5.1)
--- NOTE | 2018-08-27 13:58 | P.DS ---
DS: Providers Date of admission: 08/15/18 17:25 Primary care physician: UNKNOWN Consults: 08/15/18 17:17 Consult to Orthopedic Surgery Routine Consulting Provider: Mohan Mckay Reason for Consultation: tib fracture, Dr mckay was notified by ER physician Ordering Provider: JODY DS: Diagnosis Discharge Diagnosis (1) Closed fracture of right tibial plateau: Status: Acute DS: Summary This is a 53-year-old female with history of hypertension, hyperlipidemia, GERD , osteopenia, baby aspirin use daily, presents as a transfer from an outside hospital for evaluation of a right knee injury. The patient tripped today and fell off of a log, landing on her feet. She felt immediate pain in her right knee. X-ray at outside hospital reveals severely comminuted proximal tibia fracture with significant lateral tibial plateau depression and involvement of the medial tibial plateau and proximal tibial metadiaphysis most consistent with a Schatzker type fracture. The patient was transferred here for further evaluation. Treatment course detailed below: Status post mechanical fall Close fracture of right tibial plateau History of osteoporotic -S/P closed reduction right tibial plateau fracture, application of uniplanar external fix 08/16 -s/p ORIF with removal of exfix right tibial plateau fracture on 08/23 -Appreciate orthopedic assistance Continue postoperative care; Nonweightbearing status; Follow Ortho instructions for dressing change -Continue with pain management, with Robaxin. Spasms better controlled. -Lovenox for DVT prophylaxis, change to xarelto upon discharge -NWB -Physical therapy: no quad sets or leg lifts, PROM 0-90deg, CKS at all times except for ROM Hypertension -blood pressure in the low side -decrease lisinopril dose and continue Norvasc Hyperlipidemia Continue with pravastatin 20 mg p.o. daily Anemia -likely post op related - Hgb stable - continue MVI and iron supplements Time Spent with Patient Total time spent providing and/or coordinating discharge services: Greater than 30 minutes Quality: VTE Deep Vein Thrombosis/Pulmonary Embolism Present on Admission: No Exam Narrative Exam Narrative: GENERAL: Well-developed, well-nourished, female in no acute distress SKIN: Warm and dry. HEAD: Atraumatic. Normocephalic. NECK: Trachea midline. No JVD. CARDIOVASCULAR: Regular rate and rhythm. RESPIRATORY: No accessory muscle use. Clear to auscultation. Breath sounds equal bilaterally. GASTROINTESTINAL: Abdomen obese, soft, non-tender, nondistended. Hepatic and splenic margins not palpable. MUSCULOSKELETAL: Extremities without clubbing, cyanosis. Right lower extremity trace edema, Right knee incisions, dressed dry and intact, Sensation intact pulses palpable in bilateral lower extremity. CKS in place NEUROLOGICAL: Awake and alert. No obvious cranial nerve deficits. Generalized weakness, moving all 4 extremities except right lower extremity with limited range of motion. Normal speech. PSYCHIATRIC: Appropriate mood and affect; insight and judgment normal. Results Procedures completed during hospitalization: 08/16-close reduction right tibial plateau fracture, application of uniplanar external fixation Labs on day of discharge: Labs from last 24 hours 08/27/18 11:45 Sodium 132 L Potassium 4.5 Chloride 98 Carbon Dioxide 25.6 Anion Gap 8 BUN 14 Creatinine 1.12 H Estimated GFR 51 L Random Glucose 124 H Calcium 8.4 L Impressions ITS Impressions Knee CT 08/15/18 17:03 CONCLUSION: 1. Markedly comminuted fracture involving the proximal tibia with involvement of both the medial and lateral articulating surfaces. There is a fragment of the medial tibial plateau remaining anteriorly measuring up to 2 cm across but otherwise unremarkable depressed fragments. Laterally there is very little normal-appearing cortical fragments along the original plane of the lateral tibial plateau. 2. The medial tibial spine is grossly intact and I believe the ACL is probably still intact. 3. The bone at the PCL insertion is markedly comminuted fracture Knee X-Ray 08/23/18 00:00 CONCLUSION: Fixation proximal tibia. Discharge Plan Discharge Disposition Patient Disposition: Discharge to SNF Discharge Condition Condition: Stable Discharge Order Discharge Orders: Discharge Order (Routine); Ordered 08/27/18 Ordered By: Davina Carlton [facility] Clear for Discharge (Routine); Ordered 08/28/18 Ordered By: Chago Zhou Discharge Details Anticipated Discharge Date: 08/27/18 Physicians Team Primary Care Provider: UNKNOWN, Attending Provider: Wilbert Hatfield Other Providers: Mohan Mckay ; Aj Boudreaux Rxs /Orders / Referrals /Forms Prescriptions: New hydrocodone-acetaminophen [Ranger] 10-325 mg Tablet 1 tab PO Q4H Qty: 40 RF: 0 rivaroxaban [Xarelto] 10 mg Tablet 10 mg PO DAILY Qty: 14 RF: 0 ferrous sulfate [FeroSul] 325 mg (65 mg iron) Tablet 325 mg PO BID@1200,1700 Qty: 60 RF: 0 gabapentin [Neurontin] 300 mg Capsule 300 mg PO TID Qty: 90 RF: 0 Continue alendronate [Fosamax] 70 mg Tablet 70 mg PO QWEEK RF: 0 simvastatin 10 mg Tablet 10 mg PO QPM RF: 0 amlodipine-benazepril [Lotrel] 10-20 mg Capsule 1 cap PO DAILY RF: 0 Discontinued aspirin [Aspirin Low Dose] 81 mg Tablet,Delayed Release (Dr/Ec) 81 mg PO DAILY RF: 0 Ambulatory Orders / Order Sets / DME: Walker With Front Wheels (1 each) (Routine) Location: Determined by Patient Ordered By: Rachelle Santiago Referrals: UNKNOWN, [Primary Care Provider] - See Instructions Discharge Instructions Patient Printed Instructions: Hydrocodone/Acetaminophen (By mouth), Rivaroxaban (By mouth), Pain Management (DC), How to Choose and Use a Walker ( GEN), Pain Management After Surgery (DC), Narcotic Safety (DC), Fall Prevention (DC), Knee Immobilizer (DC) Additional Instructions: Right severely comminuted bicondylar tibia plateau fracture status post removal of exfix with ORIF -NWB -no quad sets or leg lifts -PROM 0-90deg -daily dressing changes -CKS at all times except for ROM -CM for rehab placement. Orthopedically clear for discharge to rehab -Lucrecia on chart -ortho surgeries complete -f/u with Lisa or FLORENCIO in 2 weeks Status ED Status: Left Department
[2018-08-27] MEDS: HYDROmorphone PF Inj 0.5 MG/0.5 ML Syringe IV.PUSH PRN ×2 (14:01→17:33)
[2018-08-28] MEDS: Methocarbamol 500 MG Tablet PO PRN (05:14)
[2018-08-28] MEDS: LORazepam 1 MG Tablet PO PRN (05:17)
[2018-08-28 07:10] LABS: Hematocrit 25.6 % (35.0-46.0); Hemoglobin 8.7 gm/dL (11.6-15.3); Mean Corpuscular HGB Conc 33.9 % (32.0-36.0); Mean Corpuscular Hemoglobin 29.5 pg (27.0-34.0); Mean Corpuscular Volume 86.9 fL (80.0-100.0); Mean Platelet Volume 7.2 fL (7.0-11.0); Platelet Count 497 th/mm3 (150-450); Red Blood Count 2.94 mil/mm3 (4.00-5.30); Red Cell Distribution Width 13.5 % (11.6-17.2); White Blood Count 11.3 th/mm3 (4.0-11.0)
--- NOTE | 2018-08-28 08:52 | P.PNOP ---
Subjective Interval history: Pain is controlled. Is anticipating discharge to rehab today Physical Exam Vital signs: Vital Signs 08/27/18 09:38 08/27/18 11:08 08/27/18 12:00 Temperature 98.7 F Pulse Rate 91 H Respiratory Rate 16 16 19 Blood Pressure 106/61 Pulse Oximetry 94 L 08/27/18 12:08 08/27/18 15:03 08/27/18 16:00 Temperature 99.1 F Pulse Rate 93 H Respiratory Rate 16 16 19 Blood Pressure 114/70 Pulse Oximetry 95 08/27/18 16:02 08/27/18 18:54 08/27/18 20:38 Temperature 99.2 F Pulse Rate 95 H Respiratory Rate 16 16 18 Blood Pressure 119/73 Pulse Oximetry 96 08/28/18 00:37 08/28/18 03:59 Temperature 98.3 F 97.8 F Pulse Rate 89 90 Respiratory Rate 16 18 Blood Pressure 116/64 119/70 Pulse Oximetry 95 98 Intake & Output 08/27/18 08/28/18 08/28/18 18:59 06:59 18:59 Intake Total 720 / 720 960 / 960 Output Total 3 / 3 Balance 717 / 717 960 / 960 Weight 110.5 kg Intake: Oral 720 / 720 960 / 960 Output: Urine 3 / 3 Other: # Voids 3 Date of Last Bowel Movement 08/25/18 08/28/18 # Bowel Movements 1 Narrative: Right lower extremity: Clean dry dressings intact. Knee immobilizer in place. Intact sensation in all toes. Active dorsiflexion plantar flexion of foot - Urinary Catheter Management Indwelling Urethral Catheter Cath placed during this visit: yes, but has since been removed by the nurse Reason for continuing: Decision to DC catheter Insertion date: 08/15/18 Insertion time: 17:28 Removal date: 08/18/18 Removal time: 19:45 Results - Labs CBC & Chem 7: 08/28/18 06:15 08/27/18 11:45 Laboratory Results - last 24 hr 08/27/18 08/28/18 11:45 06:15 WBC 11.3 H RBC 2.94 L Hgb 8.7 L Hct 25.6 L MCV 86.9 MCH 29.5 MCHC 33.9 RDW 13.5 Plt Count 497 H D MPV 7.2 Sodium 132 L Potassium 4.5 Chloride 98 Carbon Dioxide 25.6 Anion Gap 8 BUN 14 Creatinine 1.12 H Estimated GFR 51 L Random Glucose 124 H Calcium 8.4 L - Procedures 08/16-close reduction right tibial plateau fracture, application of uniplanar external fixation Assessment and Plan - Assessment and Plan 1) Right severely comminuted bicondylar tibia plateau fracture status post removal of exfix with ORIF - POD 5 -NWB -no quad sets or leg lifts -PROM 0-90deg -daily dressing changes -CKS at all times except for ROM -CM for rehab placement. Orthopedically clear for discharge to rehab -Lucrecia on chart -ortho surgeries complete -f/u with Lisa or FLORENCIO in 2 weeks [facility] Prescription Drug Monitoring Database has been queried and verified prior to prescribing the controlled substance. Acute pain exception. This patient has normal, predicted, physiological, and time limited response to an adverse mechanical stimulus associated with surgery, trauma, or acute illness as described in my notes. There is a lack of alternative treatment options other than to include the prescribed narcotic treatment for this condition.
[2018-08-28] MEDS: Lisinopril 20 MG Tablet PO SCH (10:19)
[2018-08-28] MEDS: Gabapentin 300 MG Capsule PO SCH ×2 (10:19→13:06)
[2018-08-28] MEDS: Calcium/Vitamin D 250/125 MG Tablet PO SCH (10:19)
[2018-08-28] MEDS: Multivitamin/Minerals Therapeutic Tablet PO SCH (10:19)
[2018-08-28] MEDS: Enoxaparin Inj 40 MG/0.4 ML Syringe SQ SCH (10:19)
[2018-08-28] MEDS: Senna/Docusate Sodium 8.6/50 MG Tablet PO SCH (10:19)
[2018-08-28 10:28] VITALS: BP 108/59; PULSE 91; RESP 14; TEMP 98; O2SAT 96
[2018-08-28] MEDS ORDERED: amLODIPine 10 MG Tablet PO SCH (11:18)
--- NOTE | 2018-08-28 11:25 | P.PNIM ---
Subjective Interval history: F/U right tibial fx s/p ORIF, postop anemia, Htn and Hld. Patient laying in bed, family at bedside, stated ready to go to rehab today, waiting for arrangement for transportation and placement. Patient stated having so much pain at night, muscle spasms and waking her up at night. However pain is better during the day. Patient taking pain medications [id number]. Instructed not to take the medication and this is really needed. Patient stated had a bowel movement, denies any nausea or vomiting. Denies any fever or chills. Physical Exam Vital signs: Vital Signs 08/27/18 12:00 08/27/18 12:08 08/27/18 15:03 Temperature 98.7 F Pulse Rate 91 H Respiratory Rate 19 16 16 Blood Pressure 106/61 Pulse Oximetry 94 L 08/27/18 16:00 08/27/18 16:02 08/27/18 18:54 Temperature 99.1 F Pulse Rate 93 H Respiratory Rate 19 16 16 Blood Pressure 114/70 Pulse Oximetry 95 08/27/18 20:38 08/28/18 00:37 08/28/18 03:59 Temperature 99.2 F 98.3 F 97.8 F Pulse Rate 95 H 89 90 Respiratory Rate 18 16 18 Blood Pressure 119/73 116/64 119/70 Pulse Oximetry 96 95 98 08/28/18 08:00 Temperature 98.0 F Pulse Rate 91 H Respiratory Rate 14 Blood Pressure 108/59 L Pulse Oximetry 96 Intake & Output 08/27/18 08/28/18 08/28/18 18:59 06:59 18:59 Intake Total 720 / 720 960 / 960 Output Total 3 / 3 Balance 717 / 717 960 / 960 Weight 110.5 kg Intake: Oral 720 / 720 960 / 960 Output: Urine 3 / 3 Other: # Voids 3 Date of Last Bowel Movement 08/25/18 08/28/18 # Bowel Movements 1 Narrative: GENERAL: Well-developed, well-nourished, female in no acute distress SKIN: Warm and dry. HEAD: Atraumatic. Normocephalic. NECK: Trachea midline. No JVD. CARDIOVASCULAR: Regular rate and rhythm. RESPIRATORY: No accessory muscle use. Clear to auscultation. Breath sounds equal bilaterally. GASTROINTESTINAL: Abdomen obese, soft, non-tender, nondistended. Hepatic and splenic margins not palpable. MUSCULOSKELETAL: Extremities without clubbing, cyanosis. Right lower extremity trace edema, Right knee incisions with gonzalo medial and lateral, clean dry and intact no drainage no redness noted. Sensation intact pulses palpable in bilateral lower extremity. CKS in place NEUROLOGICAL: Awake and alert. No obvious cranial nerve deficits. Generalized weakness, moving all 4 extremities except right lower extremity with limited range of motion. Normal speech. PSYCHIATRIC: Appropriate mood and affect; insight and judgment normal. Urinary Catheter Management Indwelling Urethral Catheter: Cath placed during this visit: yes, but has since been removed by the nurse Reason for continuing: Decision to DC catheter Insertion date: 08/15/18 Insertion time: 17:28 Removal date: 08/18/18 Removal time: 19:45 Results Labs CBC & Chem 7: 08/28/18 06:15 08/27/18 11:45 Procedures Procedures: 08/16-close reduction right tibial plateau fracture, application of uniplanar external fixation Assessment and Plan (1) Closed fracture of right tibial plateau: Code(s): S82.141A - Displaced bicondylar fracture of right tibia, initial encounter for closed fracture Status: Acute Plan 53-year-old female with history of hypertension, hyperlipidemia, GERD, osteopenia, baby aspirin use daily, presents as a transfer from an outside hospital for evaluation of a right knee injury. The patient tripped today and fell off of a log, landing on her feet. She felt immediate pain in her right knee. X-ray at outside hospital reveals severely comminuted proximal tibia fracture with significant lateral tibial plateau depression and involvement of the medial tibial plateau and proximal tibial metadiaphysis most consistent with a Schatzker type fracture. The patient was transferred here for further evaluation. Status post mechanical fall Close fracture of right tibial plateau History of osteoporotic -S/P closed reduction right tibial plateau fracture, application of uniplanar external fix 08/16 -s/p ORIF with removal of exfix right tibial plateau fracture on 08/23 -Appreciate orthopedic assistance -Mild postoperative anemia; continue to monitor. Stable. Continue postoperative care; Nonweightbearing status; Follow Ortho note for dressing change -Continue with pain management, with Robaxin. Spasms better controlled. -Bowel regimen,stool softener daily, give laxative today and prn -Lovenox for DVT prophylaxis, change to xareolto upon discharge Physical therapy -NWB, no quad sets or leg lift, PROM 0-90deg, daily dressing changes, CKS at all times except for ROM Hypertension -blood pressure in the low side -continue low dose lisinopril -decrease Norvasc dose for persistent low BP Monitor blood pressure, medications accordingly Hyperlipidemia Continue with pravastatin 20 mg p.o. daily Anemia Postop anemia due to blood loss -likely post op related - Hgb stable, monitor CBC -add iron supplements DVT prophylaxisLovenox Patient medically stable to discharge to SNF when arranged Discharge Planning: program services assistant to assist with discharge planning to SNF. Pt lives in [facility] and requested to be placed in the same area. [facility] has no bed available until nest week. Pending acceptance to [facility] Progress Note: Quality VTE Deep Vein Thrombosis/Pulmonary Embolism Present on Admission: No _ (1) Closed fracture of right tibial plateau Qualifiers: Encounter type: Fracture healing:
[2018-08-28] MEDS: Ferrous Sulfate 325 MG Tablet PO SCH (13:06)
== END 2018-08-28 15:00 | DRG 493 ==
LOC: NEPE 15:57 → NEDA 17:25 → N06 19:10
PROVIDERS: ADMIT Family Medicine; ATTEND Family Medicine
DX: S82.141A Displaced bicondylar fracture of right tibia, initial encounter for closed fracture; I10 Essential (primary) hypertension; K21.9 Gastro-esophageal reflux disease without esophagitis; E66.9 Obesity, unspecified; D62 Acute posthemorrhagic anemia; W17.89XA Other fall from one level to another, initial encounter; M81.0 Age-related osteoporosis without current pathological fracture; M62.838 Other muscle spasm; Z90.710 Acquired absence of both cervix and uterus; Z79.82 Long term (current) use of aspirin; Z79.83 Long term (current) use of bisphosphonates; F41.9 Anxiety disorder, unspecified; E78.5 Hyperlipidemia, unspecified; Z79.899 Other long term (current) drug therapy; Z68.41 Body mass index [BMI] 40.0-44.9, adult
CPT/HCPCS: 27532; 36430; 73560; 73700; 76000; 76937; 80048; 82040; 85014; 85018; 85025; 85027; 85610; 85730; 86850; 86900; 86901; 86923; 90774; 90775; 90784; 93005; 94150; 96374; 96375; 97110; 97116; 97162; 97167; 97530; 97535; 99285; C1713; C1776; C8952; J0131; J0330; J0690; J1100; J1170; J1580; J1650; J1885; J2060; J2175; J2250; J2270; J2405; J2704; J2710; J3010; J3370; J7030; J7050; J7120; L1830; P9016